=== PATIENT | female | born 1955 | race American Indian/Alaskan Native ===

== ENCOUNTER 2017-10-25 12:04 | Emergency (ER) | payer MEDICAID ==
--- NOTE | 2017-10-25 13:07 | EDM.PDOC ---
ED HPI GENERAL MEDICAL PROBLEM - General Chief Complaint: Cardiovascular Problem Stated Complaint: [id number] HEART RACING Time Seen by Provider: 10/25/17 12:50 Source of Information: Reports: Patient History Limitations: Reports: No Limitations - History of Present Illness INITIAL COMMENTS - FREE TEXT/NARRATIVE: This 61 yo female patient reports to the ED due to heart palpitations (started at 0900) and a sore throat (started at 1500 yesterday). The patient reports she has been taking Tylenol. The patient reports she has had heart palpitations in the past, but they have not lasted this long. The patient reports that she has been experiencing some sternal chest pain and upper back tightness. 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 Chest Pain Score (Numeric/FACES): 1 - Related Data Allergies Allergy/AdvReac Type Severity Reaction Status Date / Time ibuprofen Allergy Cannot Verified 10/25/17 12:43 Remember Home Meds: Home Meds Calcium Carb & Citrate/Vit D3 [Calcium + D3 ER Tablet] 1 tab PO DAILY 06/06/13 [ History] Famotidine [Pepcid] 20 mg PO DAILY 06/06/13 [History] Lisinopril [Prinivil] 10 mg PO DAILY 06/06/13 [History] Multivitamin with Minerals [Joaquin Multivitamin with Mineral] 1 tab PO DAILY 06/06 [History] traMADol [Ultram] 50 mg PO Q6H PRN 06/06/13 [History] Gabapentin [Neurontin] 300 mg PO TID 07/06/15 [History] Aspirin [Adult Low Dose Aspirin EC] 81 mg PO DAILY 09/06/17 [History] cycloSPORINE [Restasis] 1 drop EYEBOTH DAILY 09/06/17 [History] diphenhydrAMINE [Benadryl] 25 mg PO Q6HR PRN 09/06/17 [History] Past Medical History HEENT History: Reports: Impaired Vision Cardiovascular History: Reports: High Cholesterol, Hypertension, Other (See Below) Other Cardiovascular History: rapid heart and palpations Respiratory History: Reports: None Gastrointestinal History: Reports: GERD Genitourinary History: Reports: None 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: Musculoskeletal History: Reports: Back Pain, Chronic, Osteoarthritis, RA Other Musculoskeletal History: Degenerative disc disease Neurological History: Reports: None Psychiatric History: Reports: None Endocrine/Metabolic History: Reports: None Hematologic History: Reports: None Immunologic History: Reports: None Oncologic (Cancer) History: Reports: None Dermatologic History: Reports: None - Infectious Disease History Infectious Disease History: Reports: Chicken Pox, Measles, Mumps - Past Surgical History GI Surgical History: Reports: None Social & Family History - Family History Family Medical History: Noncontributory - Tobacco Use Smoking Status *Q: Unknown Ever Smoked - Caffeine Use Caffeine Use: Reports: Coffee - Recreational Drug Use Recreational Drug Use: No - Living Situation & Occupation Living situation: Reports: , with Family Occupation: Retired ED ROS GENERAL - Review of Systems Review Of Systems: ROS reveals no pertinent complaints other than HPI. ED EXAM, GENERAL - Physical Exam Exam: See Below Exam Limited By: No Limitations General Appearance: Alert, WD/WN, Moderate Distress Eye Exam: Bilateral Eye: EOMI, Normal Inspection, PERRL Ears: Normal External Exam, Normal Canal, Hearing Grossly Normal, Normal TMs Nose: Normal Inspection, Normal Mucosa, No Blood Throat/Mouth: Other (tonsilar erythema, right tonsular exudates, posterior pharynx erythema) Head: Atraumatic, Normocephalic Neck: Lymphadenopathy (R) Respiratory/Chest: No Respiratory Distress, Lungs Clear, Normal Breath Sounds, No Accessory Muscle Use, Chest Non-Tender Cardiovascular: No Edema, No Gallop, No JVD, No Murmur, No Rub, Tachycardia GI/Abdominal: Normal Bowel Sounds, Soft, Non-Tender, No Organomegaly, No Distention, No Abnormal Bruit, No Mass (Female) Exam: Deferred Rectal (Female) Exam: Deferred Back Exam: Normal Inspection, Full Range of Motion, NT Extremities: Normal Inspection, Normal Range of Motion, Non-Tender, Normal Capillary Refill, No Pedal Edema Neurological: Alert, Oriented, CN II-XII Intact, Normal Cognition, Normal Gait, Normal Reflexes, No Motor/Sensory Deficits Psychiatric: Normal Affect, Normal Mood Skin Exam: Warm, Dry, Intact, Normal Color, No Rash Lymphatic: No Adenopathy Course - Vital Signs Last Recorded V/S: Last Vital Signs Temp 37.0 C 08/14/18 12:50 Pulse 153 H 10/25/17 12:50 Resp 13 10/25/17 12:50 BP 124/86 10/25/17 12:50 Pulse Ox 95 10/25/17 12:50 - Orders/Labs/Meds Orders: Active Orders 24 hr Category Date Time Status EKG Documentation Completion [RC] URGENT Care 10/25/17 12:33 Ordered DRUG SCREEN URINE BIORAD [URCHEM] Stat Lab 10/25/17 12:33 Ordered UA W/MICROSCOPIC [URIN] Stat Lab 10/25/17 12:33 Ordered Pen G Bryan/Pen G Procaine [Bicillin C-R 600/600] Med 10/25/17 13:25 Once 1.2 millunits IM ONETIME ONE Medication Orders Penicillin G Procaine/Benzathine (Bicillin C-R 600/600) 1.2 millunits IM ONETIME ONE Stop: 10/25/17 13:26 Labs: Laboratory Tests 10/25/17 10/25/17 10/25/17 Range/Units 12:41 12:41 13:14 WBC 14.5 H (5.0-10.0) 10^3/uL RBC 4.44 (4.2-5.4) 10^6/uL Hgb 13.1 (12.0-16.0) g/dL Hct 40.3 (37.0-47.0) % MCV 90.8 (80-100) fL MCH 29.5 (27.0-34.0) pg MCHC 32.5 L (33.0-35.0) g/dL Plt Count 269 (150-450) 10^3/uL Neut % (Auto) 80.3 H (42.2-75.2) % Lymph % (Auto) 13.9 L (20.5-50.1) % [place] % (Auto) 5.4 (2-8) % Eos % (Auto) 0.2 L (1.0-3.0) % Baso % (Auto) 0.2 (0.0-1.0) % Sodium 136 (135-145) mmol/L Potassium 3.8 (3.6-5.0) mmol/L Chloride 101 (101-111) mmol/L Carbon Dioxide 25.0 (21.0-31.0) mmol/L Anion Gap 13.8 BUN 9 (7-18) mg/dL Creatinine 0.7 (0.6-1.3) mg/dL Est Cr Clr Drug Dosing 79.52 mL/min Estimated GFR (MDRD) > 60 BUN/Creatinine Ratio 12.85 Glucose 119 H (74-105) mg/dL Calcium 9.0 (8.4-10.2) mg/dl Total Bilirubin 1.1 H (0.2-1.0) mg/dL AST 24 (10-42) IU/L ALT 21 (10-60) IU/L Alkaline Phosphatase 125 H (42-121) IU/L Troponin I < 0.02 (0.00-0.02) ng/ml Total Protein 8.4 H (6.7-8.2) g/dl Albumin 4.3 (3.2-5.5) g/dl Globulin 4.1 Albumin/Globulin Ratio 1.05 Urine Color Yellow (YELLOW) Urine Appearance Clear (CLEAR) Urine pH 7.5 (5.0-9.0) Ur Specific [place] 1.015 (1.005-1.030) Urine Protein Negative (NEGATIVE) Urine Glucose (UA) Negative (NEGATIVE) Urine Ketones 15 H (NEGATIVE) Urine Occult Blood Moderate H (NEGATIVE) Urine Nitrite Negative (NEGATIVE) Urine Bilirubin Negative (NEGATIVE) Urine Urobilinogen 0.2 (0.2-1.0) mg/dL Ur Leukocyte Esterase Small H (NEGATIVE) Meds: Medications Generic Name Dose Route Start Last Admin Trade Name Freq PRN Reason Stop Dose Admin Penicillin G Procaine/Benzathine 1.2 millunits 10/25/17 13:25 Bicillin C-R 600/600 IM 10/25/17 13:26 ONETIME ONE Departure - Departure Time of Disposition: 13:26 Disposition: Home, Self-Care 01 Condition: Fair Clinical Impression: Strep throat Instructions: Strep Throat, [id number] Forms: ED Department Discharge Care Plan Goals: The patient was advised of the examination, lab and EKG results during the visit. The patient was given an injection of Bicillin while in the ED. The patient was discharged with a script for Azithromycin (250 mg) #6 to take 2 by mouth on day 1 and 1 by mouth on days 2-5. If the patient has any additional symptoms or concerns, the patient should follow-up with her primary care facility or return to the emergency department. - My Orders Last 24 Hours: My Active Orders 10/25/17 12:33 EKG Documentation Completion [RC] URGENT DRUG SCREEN URINE BIORAD [URCHEM] Stat UA W/MICROSCOPIC [URIN] Stat 10/25/17 13:25 Pen G Bryan/Pen G Procaine [Bicillin C-R 600/600] 1.2 millunits IM ONETIME ONE - Assessment/Plan Last 24 Hours: My Active Orders 10/25/17 12:33 EKG Documentation Completion [RC] URGENT DRUG SCREEN URINE BIORAD [URCHEM] Stat UA W/MICROSCOPIC [URIN] Stat 10/25/17 13:25 Pen G Bryan/Pen G Procaine [Bicillin C-R 600/600] 1.2 millunits IM ONETIME ONE
[2017-10-25 13:08] LABS: ANION GAP 13.8; CHLORIDE,CL 101 mmol/L (101-111); SODIUM,NA 136 mmol/L (135-145)
[2017-10-25] MEDS ORDERED: Penicillin G Benzathine/Procaine 600-600 1.2 Millunits/2 ML Syringe IM ONE (13:25)
[2017-10-25 13:36] VITALS: BP 117/82
--- NOTE | 2017-10-26 12:46 | EKG ---
10/25/2017- PITA REGAN - FINDINGS: A 12-lead EKG shows normal sinus rhythm with sinus tachycardia and first-degree AV block. No significant ST elevation or ST depression noted on this 12-lead EKG. SC interval of 248 as per reading. [facility] /[id number]
== END 2017-10-25 13:46 | disposition home or self-care (01) ==
LOC: DL.ED 12:04
DX: J02.0 Streptococcal pharyngitis (principal); I10 Essential (primary) hypertension; E78.00 Pure hypercholesterolemia, unspecified; K21.9 Gastro-esophageal reflux disease without esophagitis; Z79.82 Long term (current) use of aspirin; Z79.899 Other long term (current) drug therapy; Z88.6 Allergy status to analgesic agent
CPT/HCPCS: 36415; 80053; 80305; 81001; 84484; 85025; 87430; 93005; 96372; 99285; J0558

== ENCOUNTER 2017-11-08 06:35 | Day surgery (SDC) | payer MEDICAID ==
[~2017-11-08 06:35] MED LIST: Midazolam 1 MG/ML 2 ML SDV ONE; Sodium Chloride 0.9% 10 ML Syringe FLUSH PRN; fentaNYL 100 MCG/2 ML SDV ONE
[2017-11-08] MEDS ORDERED: Midazolam 1 MG/ML 2 ML SDV IV ONE (06:36)
[2017-11-08] MEDS ORDERED: fentaNYL 100 MCG/2 ML SDV IV ONE (06:36)
[2017-11-08] MEDS ORDERED: Midazolam 1 MG/ML 2 ML SDV ONE (06:41)
[2017-11-08] MEDS ORDERED: fentaNYL 100 MCG/2 ML SDV ONE (06:41)
[2017-11-08] MEDS: Dextrose 5%-0.45% NaCl 1,000 ML IV SCH (07:00)
[2017-11-08] MEDS: fentaNYL 100 MCG/2 ML SDV IV ONE ×2 (07:23→07:24)
[2017-11-08] MEDS: Midazolam 1 MG/ML 2 ML SDV IV ONE ×2 (07:25→07:26)
[2017-11-08 09:22] VITALS: BP 107/65
--- NOTE | 2017-11-08 13:56 | OR ---
DATE: 11/08/2017 PROCEDURE: Esophagogastroduodenoscopy and multiple pinch biopsies. INSTRUMENT USED: GIF-H180 Olympus video panendoscope. PREMEDICATIONS: No oral topical anesthesia used. Fentanyl 100 mcg intravenous, Versed 2 mg intravenous, nasal O2 cannula. The procedure was done under pulse oximetry, BP recording, and shelter monitor. INDICATIONS: The patient with longstanding heartburn, dyspepsia as well as abdominal pain, unexplained and not responsive to medical measures, on acid suppressants. Esophagogastroduodenoscopy is performed for detection of any active erosive lesions, Orozco esophagus and/or malignancy also under consideration, H. pylori status to be determined, endoscopic hemostasis therapy if needed. DESCRIPTION OF PROCEDURE: The scope was passed with ease. Adequate visualization of the esophagus was made from proximal to distal areas. No upper esophageal lesions identified. No distal esophageal stricture. No uphill or downhill esophageal varices. No Vy-Mahmood tear. No evidence of erosive esophagitis by [place] criteria. No esophageal polyp or tumor mass identified. Z-line was seen at around 39 cm distal to the oral verge, configuration consistent with grade 1 by ZAP classification. No proximal gastric varices noted. Gastric fundus examination by retroflexion showed no polypoid lesions. No gastric ulcer, malignant mass, or vascular ectasia identified. Scattered gastric antral erosions were noted without lesions. Duodenal bulb showed no ulcer. Visualized second part of the duodenum was unremarkable. Multiple pinch biopsies were taken from the gastric antrum and proximal body and sent for PyloriTek test for H. pylori, and if negative in an hour, the tissue is to be sent for histopathology. No bleeding was noted from any of the visualized areas at the completion of examination. Photographs were taken of duodenal bulb, gastric antrum, fundus, and distal esophagus. IMPRESSION: Gastric antral erosions. The patient tolerated the procedure well. [facility] /[id number]
== END 2017-11-08 09:22 | disposition home or self-care (01) ==
LOC: DL.ENDO 06:35
PROVIDERS: ATTEND Internal Medicine Gastroenterology
DX: K29.50 Unspecified chronic gastritis without bleeding (principal); K25.9 Gastric ulcer, unspecified as acute or chronic, without hemorrhage or perforation; D64.9 Anemia, unspecified; I10 Essential (primary) hypertension; E66.09 Other obesity due to excess calories; M19.90 Unspecified osteoarthritis, unspecified site; G47.30 Sleep apnea, unspecified; Z79.82 Long term (current) use of aspirin; Z79.899 Other long term (current) drug therapy
CPT/HCPCS: 43239; 87077; J2250; J3010; J7042

== ENCOUNTER 2018-12-05 20:42 | Emergency (ER) | payer MEDICAID ==
[2018-12-05 21:02] VITALS: PULSE 74
[2018-12-05] MEDS ORDERED: Nitroglycerin 0.4 MG Tab.SL SL ONE (21:43)
[2018-12-05] MEDS ORDERED: Ondansetron 4 MG/2 ML SDV IV ONE (21:43)
[2018-12-05 21:49] LABS: ANION GAP 10.7; CHLORIDE,CL 105 mmol/L (101-111); SODIUM,NA 139 mmol/L (135-145)
[2018-12-05 22:06] VITALS: BP 133/72
--- NOTE | 2018-12-06 00:05 | EDM.PDOC ---
ED HPI GENERAL MEDICAL PROBLEM - General Chief Complaint: Cardiovascular Problem Stated Complaint: LOW HEART RATE, DIFFICULTY BREATHING Time Seen by Provider: 12/05/18 21:10 Source of Information: Reports: Patient History Limitations: Reports: No Limitations - History of Present Illness INITIAL COMMENTS - FREE TEXT/NARRATIVE: ED with c/o low heart rate, first noticing around noon today, felt more tired, some SOB, No "chest pain" some discomfort under left lateral breast and left shoulder. Hx of internal loop recorder following 2 abalation procedures for / tachy, rustam rhythms. Notes hx of a- fib but not on any anticoag except baby aspirin. mild nausea, no vomiting. No fever oor chills. Middle Back Pain Score (Numeric/FACES): 2 - Related Data Allergies Allergy/AdvReac Type Severity Reaction Status Date / Time ibuprofen AdvReac Other Verified 12/05/18 20:58 Home Meds: Home Meds Calcium Carb & Citrate/Vit D3 [Calcium + D3 ER Tablet] 1 tab PO DAILY 06/06/13 [ History] Multivitamin with Minerals [Joaquin Multivitamin with Mineral] 1 tab PO DAILY 06/06 [History] traMADol [Ultram] 50 mg PO Q6H PRN 06/06/13 [History] Aspirin [Adult Low Dose Aspirin EC] 81 mg PO DAILY 09/06/17 [History] cycloSPORINE [Restasis] 1 drop EYEBOTH DAILY 09/06/17 [History] Acetaminophen 1,000 mg PO TID 11/04/17 [History] Folic Acid 1 mg PO DAILY 12/05/18 [History] Metoprolol Tartrate [Lopressor] 25 mg PO BID 12/05/18 [History] Omeprazole 20 mg PO DAILY 12/05/18 [History] Past Medical History HEENT History: Reports: Impaired Vision Cardiovascular History: Reports: Arrhythmia, High Cholesterol, Hypertension, Other (See Below) Other Cardiovascular History: rapid heart and palpations Respiratory History: Reports: Sleep Apnea Gastrointestinal History: Reports: GERD, Other (See Below) Other Gastrointestinal History: S/P GASTRIC EROSIONS Genitourinary History: Reports: 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 HX OF COSTOCHONDRITIS. FRACTURE OF R FEMUR Neurological History: Reports: None, Other (See Below) Other Neuro History: HX OF ASCENCIO'S PALSY Psychiatric History: Reports: None Endocrine/Metabolic History: Reports: Obesity/BMI 30+ Hematologic History: Reports: Anemia Immunologic History: Reports: None Oncologic (Cancer) History: Reports: None Dermatologic History: Reports: None - Infectious Disease History Infectious Disease History: Reports: Chicken Pox, Measles, Mumps - Past Surgical History Head Surgeries/Procedures: Reports: None HEENT Surgical History: Reports: None Cardiovascular Surgical History: Reports: Percutaneous Transluminal Angioplasty , Other (See Below) Other Cardiovascular Surgeries/Procedures: Oblation GI Surgical History: Reports: Colonoscopy, EGD Female Surgical History: Reports: Tubal Ligation Neurological Surgical History: Reports: None Social & Family History - Family History Family Medical History: Noncontributory - Tobacco Use Smoking Status *Q: Unknown Ever Smoked Second Hand Smoke Exposure: No - Caffeine Use Caffeine Use: Reports: Coffee Other Caffeine Use: 12 oz - Recreational Drug Use Recreational Drug Use: No - Living Situation & Occupation Living situation: Reports: , with Family Occupation: Retired ED ROS GENERAL - Review of Systems Review Of Systems: See Below Constitutional: Reports: Malaise, Fatigue. Denies: Fever, Chills, Weakness, Diaphoresis, Decreased Appetite HEENT: Reports: No Symptoms Respiratory: Denies: Wheezing, Pleuritic Chest Pain, Cough, Sputum Cardiovascular: Reports: Palpitations. Denies: Chest Pain, Dyspnea on Exertion , Edema GI/Abdominal: Reports: Nausea Musculoskeletal: Reports: No Symptoms Skin: Reports: No Symptoms Neurological: Reports: No Symptoms ED EXAM, GENERAL - Physical Exam Exam: See Below Exam Limited By: No Limitations General Appearance: Alert, No Apparent Distress, Anxious Eye Exam: Bilateral Eye: EOMI Ears: Normal External Exam, Normal TMs Nose: Normal Inspection, Nasal Tenderness Throat/Mouth: Normal Inspection Head: Atraumatic, Normocephalic Neck: Normal Inspection, Full Range of Motion Respiratory/Chest: No Respiratory Distress, Lungs Clear, Normal Breath Sounds Cardiovascular: Regular Rate, Rhythm. No: No Rub, JVD, Extra Beats, Irregularly Irregular GI/Abdominal: Normal Bowel Sounds, Soft Back Exam: Full Range of Motion Extremities: Normal Inspection Neurological: Alert, Oriented, Normal Cognition Psychiatric: Anxious, Flat Affect Skin Exam: Warm, Dry, Intact, Normal Color EKG INTERPRETATION Rhythm: Other (sinus rustam) Course - Vital Signs Last Recorded V/S: Last Vital Signs Temp 98.0 F 12/05/18 21:01 Pulse 74 12/05/18 21:01 Resp 16 12/05/18 21:01 BP 133/72 12/05/18 22:06 Pulse Ox 96 12/05/18 21:01 - Orders/Labs/Meds Orders: Active Orders 24 hr Category Date Time Status EKG Documentation Completion [RC] URGENT Care 12/05/18 21:02 Active Labs: Laboratory Tests 12/05/18 12/05/18 12/05/18 Range/Units 21:21 21:21 21:21 WBC 7.7 (5.0-10.0) 10^3/uL RBC 4.13 L (4.2-5.4) 10^6/uL Hgb 12.3 (12.0-16.0) g/dL Hct 37.9 (37.0-47.0) % MCV 91.8 (80-100) fL MCH 29.8 (27.0-34.0) pg MCHC 32.5 L (33.0-35.0) g/dL Plt Count 246 (150-450) 10^3/uL Neut % (Auto) 49.6 (42.2-75.2) % Lymph % (Auto) 39.8 (20.5-50.1) % [place] % (Auto) 7.0 (2-8) % Eos % (Auto) 3.1 H (1.0-3.0) % Baso % (Auto) 0.5 (0.0-1.0) % D-Dimer, Quantitative 460 H (0-400) ng/mL Sodium 139 (135-145) mmol/L Potassium 3.7 (3.6-5.0) mmol/L Chloride 105 (101-111) mmol/L Carbon Dioxide 27.0 (21.0-31.0) mmol/L Anion Gap 10.7 BUN 14 (7-18) mg/dL Creatinine 0.8 (0.6-1.3) mg/dL Est Cr Clr Drug Dosing 66.51 mL/min Estimated GFR (MDRD) > 60 BUN/Creatinine Ratio 17.50 Glucose 113 H (74-105) mg/dL Calcium 8.7 (8.4-10.2) mg/dl Magnesium 2.1 (1.8-2.5) mg/dL Total Bilirubin 0.7 (0.2-1.0) mg/dL AST 30 (10-42) IU/L ALT 33 (10-60) IU/L Alkaline Phosphatase 92 (42-121) IU/L Troponin I < 0.02 (0.00-0.02) ng/ml B-Natriuretic Peptide 93 (0-100) pg/ml Total Protein 7.4 (6.7-8.2) g/dl Albumin 3.7 (3.2-5.5) g/dl Globulin 3.7 Albumin/Globulin Ratio 1.00 Meds: Medications Discontinued Medications Generic Name Dose Route Start Last Admin Trade Name Freq PRN Reason Stop Dose Admin Nitroglycerin 0.4 mg 12/05/18 21:43 12/05/18 22:06 Nitrostat SL 12/05/18 21:44 Not Given ONETIME ONE Ondansetron HCl 4 mg 12/05/18 21:43 12/05/18 22:05 Zofran IV 12/05/18 21:44 4 mg ONETIME ONE Administration - Radiology Interpretation Free Text/Narrative:: [facility] Final Radiology Report Call: [phone] assistance Online chat: [email or web address] Name: PITA REGAN Age: 63Years F Date: 12/05/2018 SSN: -- : 1955 Study: XR CHEST 1 VIEW FRONTAL Requesting Physician: MELODY MCDERMOTT Images: 1 Addl Studies: Provided Clinical History: Contrast: Contrast Medium: Contrast Amount: Contrast Method: CONFIDENTIALITY STATEMENT This report is intended only for use by the referring physician, and only in accordance with law. If you received this in error, call [phone]. Page 1 of 1 PROCEDURE INFORMATION: Exam: XR Chest, 1 View Exam date and time: 12/05/2018 9:17 PM Clinical history: 63 years old, female; Other: Bradycardia TECHNIQUE: Imaging protocol: XR of the chest Views: 1 view. COMPARISON: CR CHEST PA/LAT 12/21/2007 11:44 AM FINDINGS: Tubes, catheters and devices: There is an implantable loop recorder in the left side of the chest. Lungs: Unremarkable. No consolidation. Pleural space: Unremarkable. No pleural effusion. No pneumothorax. Heart/Mediastinum: The heart is top-normal in size. Bones/joints: Unremarkable. IMPRESSION: No sign of acute cardiopulmonary abnormality or abnormal interval change. Thank you for allowing us to participate in the care of your patient. Dictated and Authenticated by: Vargas Francisco DO 12/05/2018 10:06 PM Central Time ([place] & [place]) - Re-Assessments/Exams Free Text/Narrative Re-Assessment/Exam: 12/06/18 00:06 Dr Sneed accepting patient in transfer. Tx via [facility] 12/06/18 03:58 Departure - Departure Time of Disposition: 00:10 Disposition: DC/Tfer to Acute Hospital 02 Reason for Transfer *Q: Other Condition: Good Clinical Impression: Palpitations, Sinus bradycardia Forms: ED Department Discharge - My Orders Last 24 Hours: My Active Orders 12/05/18 21:02 EKG Documentation Completion [RC] URGENT - Assessment/Plan Last 24 Hours: My Active Orders 12/05/18 21:02 EKG Documentation Completion [RC] URGENT
== END 2018-12-06 00:15 ==
LOC: DL.ED 20:42
DX: R00.1 Bradycardia, unspecified (principal); R00.2 Palpitations; I10 Essential (primary) hypertension; K21.9 Gastro-esophageal reflux disease without esophagitis; E66.9 Obesity, unspecified; Z98.51 Tubal ligation status; Z79.82 Long term (current) use of aspirin; Z79.899 Other long term (current) drug therapy; Z88.6 Allergy status to analgesic agent; Z86.79 Personal history of other diseases of the circulatory system
CPT/HCPCS: 36415; 71045; 80053; 83735; 83880; 84484; 85025; 85379; 93005; 96374; 99285; J2405

== ENCOUNTER 2020-02-04 11:43 | Emergency (ER) | payer MEDICARE, MEDICAID ==
[2020-02-04 11:59] VITALS: BP 133/69; PULSE 70
--- NOTE | 2020-02-04 12:25 | CR ---
EXAMINATION: Chest 2V SEX: Female AGE: 64 years CLINICAL HISTORY: 64-year-old female short of breath (SOB). INTERPRETATION: No acute new cardiopulmonary abnormality since 05 December 2018 comparison. 1. New cardiac pacemaker over the anterior upper left hemithorax (2 leads intact). Oxygen cannula. 2. No pneumothorax or pneumomediastinum. Midline tracheal bronchial airway unremarkable. 3. No new lung mass, hilar lymphadenopathy or focal lobar consolidation (infiltrate/atelectasis). 4. No peripheral "groundglass" lung densities. 5. Early degenerative changes mid and lower thoracic spine. Thoracic aorta unremarkable. 6. Normal cardiac silhouette (size/configuration). No vascular congestion, alveolar edema, pleural effusion.
[2020-02-04 12:32] LABS: ANION GAP 14.1 mEq/L (7-13); CHLORIDE,CL 101 mmol/L (98-107); SODIUM,NA 136 mmol/L (136-145)
[2020-02-04] MEDS ORDERED: Sodium Chloride 0.9% 1,000 ML IV ONE (12:51)
--- NOTE | 2020-02-04 12:58 | EDM.PDOC ---
ED HPI GENERAL MEDICAL PROBLEM - General Chief Complaint: Respiratory Problem Stated Complaint: AMBULANCE Time Seen by Provider: 02/04/20 12:45 Source of Information: Reports: Patient History Limitations: Reports: No Limitations - History of Present Illness INITIAL COMMENTS - FREE TEXT/NARRATIVE: This 64 yo female patient reports to the ED due to increased shortness of breath, lightheadedness and a cough. The patient reports she was diagnosed with COVID on 01/24/20 and has been on 2 different courses of antibiotics along with steroids. The patient reports she has been seen at the [facility] with her last visit being last Tuesday (02/01/20). The patient was initially on Rocephin and Azithromycin, but now is on Levaquin along with steroids. The patient did not call or return to the [facility] today with her continued symptoms. Onset Date: 01/24/20 Duration: Constant Location: Reports: Chest Quality: Reports: Other Severity: Moderate Improves with: Reports: None Worsens with: Reports: None Context: Reports: Other Associated Symptoms: Reports: Cough, Fever/Chills, Shortness of Breath, Weakness (generalized) Generalized Pain Score (Numeric/FACES): 4 - Related Data Allergies Allergy/AdvReac Type Severity Reaction Status Date / Time ibuprofen AdvReac Other Verified 02/04/20 11:59 Home Meds: Home Meds Calcium Carb, Citrate/Vit D3 [Calcium + D3 ER Tablet] 1 tab PO DAILY 06/06/13 [History] Multivitamin with Minerals [Joaquin Multivitamin with Mineral] 1 tab PO DAILY 06/06/13 [History] traMADol [Ultram] 50 mg PO Q6H PRN 06/06/13 [History] Aspirin [Adult Low Dose Aspirin EC] 81 mg PO DAILY 09/06/17 [History] cycloSPORINE [Restasis] 1 drop EYEBOTH DAILY 09/06/17 [History] Acetaminophen 1,000 mg PO TID 11/04/17 [History] Folic Acid 1 mg PO DAILY 12/05/18 [History] Metoprolol Tartrate [Lopressor] 25 mg PO BID 12/05/18 [History] Omeprazole 20 mg PO DAILY 12/05/18 [History] Past Medical History HEENT History: Reports: Impaired Vision Cardiovascular History: Reports: Arrhythmia, High Cholesterol, Hypertension, Pacemaker, Other (See Below) Other Cardiovascular History: rapid heart and palpations Respiratory History: Reports: Sleep Apnea Gastrointestinal History: Reports: GERD, Other (See Below) Other Gastrointestinal History: S/P GASTRIC EROSIONS Genitourinary History: Reports: None 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 HX OF COSTOCHONDRITIS. FRACTURE OF R FEMUR Neurological History: Reports: None, Other (See Below) Other Neuro History: HX OF ASCENCIO'S PALSY Psychiatric History: Reports: None Endocrine/Metabolic History: Reports: Obesity/BMI 30+ Hematologic History: Reports: Anemia Immunologic History: Reports: None Oncologic (Cancer) History: Reports: None Dermatologic History: Reports: None - Infectious Disease History Infectious Disease History: Reports: Chicken Pox, Measles, Mumps - Past Surgical History Head Surgeries/Procedures: Reports: None HEENT Surgical History: Reports: None Cardiovascular Surgical History: Reports: Percutaneous Transluminal Angioplasty, Other (See Below) Other Cardiovascular Surgeries/Procedures: Oblation GI Surgical History: Reports: Colonoscopy, EGD Female Surgical History: Reports: Tubal Ligation Neurological Surgical History: Reports: None Social & Family History - Family History Family Medical History: No Pertinent Family History - Tobacco Use Tobacco Use Status *Q: Never Tobacco User Second Hand Smoke Exposure: No - Caffeine Use Caffeine Use: Reports: None Other Caffeine Use: 12 oz - Recreational Drug Use Recreational Drug Use: No - Living Situation & Occupation Living situation: Reports: , with Family Occupation: Retired ED ROS GENERAL - Review of Systems Review Of Systems: Comprehensive ROS is negative, except as noted in HPI. ED EXAM, GENERAL - Physical Exam Exam: See Below Exam Limited By: No Limitations General Appearance: Alert, WD/WN, Moderate Distress, Obese Eye Exam: Bilateral Eye: EOMI, Normal Inspection, PERRL Ears: Normal External Exam, Normal Canal, Hearing Grossly Normal, Normal TMs Nose: Normal Inspection, Normal Mucosa, No Blood Throat/Mouth: Normal Inspection, Normal Lips, Normal Teeth, Normal Gums, Normal Oropharynx, Normal Voice, No Airway Compromise Head: Atraumatic, Normocephalic Neck: Normal Inspection, Supple, Non-Tender, Full Range of Motion Respiratory/Chest: Decreased Breath Sounds (diffuse) Cardiovascular: Normal Peripheral Pulses, Regular Rate, Rhythm, No Edema, No Gallop, No JVD, No Murmur, No Rub GI/Abdominal: Normal Bowel Sounds, Soft, Non-Tender, No Organomegaly, No Distention, No Abnormal Bruit, No Mass (Female) Exam: Deferred Rectal (Female) Exam: Deferred Back Exam: Normal Inspection, Full Range of Motion, NT Extremities: Normal Inspection, Normal Range of Motion, Non-Tender, Normal Capillary Refill, No Pedal Edema Neurological: Alert, Oriented, CN II-XII Intact, Normal Cognition, Normal Gait, Normal Reflexes, No Motor/Sensory Deficits Psychiatric: Normal Affect, Normal Mood Skin Exam: Warm, Dry, Intact, Normal Color, No Rash Lymphatic: No Adenopathy Course - Vital Signs Last Recorded V/S: Last Vital Signs Temp 36.4 C 02/04/20 11:55 Pulse 70 02/04/20 11:55 Resp 20 02/04/20 11:55 BP 133/69 02/04/20 11:55 Pulse Ox 93 L 02/04/20 11:55 - Orders/Labs/Meds Orders: Active Orders 24 hr Category Date Time Status EKG Documentation Completion [RC] STAT Care 02/04/20 11:51 Active CULTURE BLOOD [BC] Stat Lab 02/04/20 12:04 Received Sodium Chloride 0.9% [Normal Saline] 1,000 ml Med 02/04/20 12:51 Active IV .BOLUS Medication Orders Sodium Chloride (Normal Saline) 1,000 mls @ 999 mls/hr IV .BOLUS ONE Stop: 02/04/20 13:51 Last Infusion: 02/04/20 13:39 Dose: 125 mls/hr Documented by: Admin: 02/04/20 12:59 Dose: 999 mls/hr Documented by: MADISON Labs: Laboratory Tests 02/04/20 02/04/20 02/04/20 Range/Units 12:04 12:04 12:04 WBC 10.2 H (5.0-10.0) 10^3/uL RBC 4.46 (4.2-5.4) 10^6/uL Hgb 13.3 (12.0-16.0) g/dL Hct 39.1 (37.0-47.0) % MCV 87.7 D (80-100) fL MCH 29.8 (27.0-34.0) pg MCHC 34.0 (33.0-35.0) g/dL Plt Count 327 D (150-450) 10^3/uL Neut % (Auto) 91.1 H (42.2-75.2) % Lymph % (Auto) 5.8 L (20.5-50.1) % [place] % (Auto) 3.1 (2-8) % Eos % (Auto) 0.0 L (1.0-3.0) % Baso % (Auto) 0.0 (0.0-1.0) % Add Manual Diff Yes Neutrophils % (Manual) 93 H (42-75) % Band Neutrophils % 1 % Lymphocytes % (Manual) 5 L (20-50) % Monocytes % (Manual) 1 L (2-8) % Sodium 136 (136-145) mmol/L Potassium 4.1 (3.5-5.1) mmol/L Chloride 101 (98-107) mmol/L Carbon Dioxide 25 (21-32) mmol/L Anion Gap 14.1 H (7-13) mEq/L BUN 10 (7-18) mg/dL Creatinine 0.78 (0.55-1.02) mg/dL Est Cr Clr Drug Dosing 69.92 mL/min Estimated GFR (MDRD) > 60 BUN/Creatinine Ratio 12.8 (No establ ref range) Glucose 137 H (74-99) mg/dL Lactic Acid 1.4 (0.4-2.0) mmol/L Calcium 8.7 (8.5-10.1) mg/dL Total Bilirubin 0.6 (0.2-1.0) mg/dL AST 43 H (15-37) U/L ALT 52 (14-59) U/L Alkaline Phosphatase 99 (46-116) U/L Troponin I < 0.017 (0.000-0.056) ng/mL Total Protein 7.7 (6.4-8.2) g/dL Albumin 2.8 L (3.4-5.0) g/dL Globulin 4.9 Albumin/Globulin Ratio 0.57 Meds: Medications Generic Name Dose Route Start Last Admin Trade Name Freq PRN Reason Stop Dose Admin Sodium Chloride 1,000 mls @ 999 mls/hr 02/04/20 12:51 02/04/20 13:39 Normal Saline IV 02/04/20 13:51 125 mls/hr .BOLUS ONE Infusion Departure - Departure Time of Disposition: 13:49 Disposition: Home, Self-Care 01 Condition: Fair Clinical Impression: Short of breath on exertion - Discharge Information *PRESCRIPTION DRUG MONITORING PROGRAM REVIEWED*: Not Applicable *COPY OF PRESCRIPTION DRUG MONITORING REPORT IN PATIENT KIN: Not Applicable Forms: ED Department Discharge Care Plan Goals: The patient was advised of the examination, lab and x-ray results during the visit. The patient was encouraged to continue to take the medications as prescribed by her primary care facility. The patient was discharged with a script for Johnsin AC #150 to take 10 mL by mouth every 6 hours as needed. If the patient has any additional symptoms or concerns, the patient should either return to the emergency department or visit her primary care facility. Sepsis Event Note (ED) - Evaluation Sepsis Screening Result: No Definite Risk - Focused Exam Vital Signs: Vital Signs Temp Pulse Resp BP Pulse Ox 02/04/20 11:55 36.4 C 70 20 133/69 93 L - My Orders Last 24 Hours: My Active Orders 02/04/20 11:51 EKG Documentation Completion [RC] STAT 02/04/20 12:04 CULTURE BLOOD [BC] Stat 02/04/20 12:51 Sodium Chloride 0.9% [Normal Saline] 1,000 ml IV .BOLUS - Assessment/Plan Last 24 Hours: My Active Orders 02/04/20 11:51 EKG Documentation Completion [RC] STAT 02/04/20 12:04 CULTURE BLOOD [BC] Stat 02/04/20 12:51 Sodium Chloride 0.9% [Normal Saline] 1,000 ml IV .BOLUS
== END 2020-02-04 14:08 | disposition home or self-care (01) ==
LOC: DL.ED 11:43
DX: R06.02 Shortness of breath (principal); I10 Essential (primary) hypertension; K21.9 Gastro-esophageal reflux disease without esophagitis; M19.90 Unspecified osteoarthritis, unspecified site; E66.9 Obesity, unspecified; Z68.34 Body mass index [BMI] 34.0-34.9, adult; Z88.6 Allergy status to analgesic agent; Z79.82 Long term (current) use of aspirin; Z79.899 Other long term (current) drug therapy
CPT/HCPCS: 36415; 71046; 80053; 83605; 84484; 85025; 87040; 93005; 99285; J7030

== ENCOUNTER 2020-02-06 17:51 | Inpatient (IN) | payer MEDICARE, MEDICAID ==
--- NOTE | 2020-02-06 18:19 | EDM.PDOC ---
<Roberto Sinha Cheng - Last Filed: 02/06/20 19:30> ED HPI GENERAL MEDICAL PROBLEM - General Chief Complaint: Respiratory Problem Time Seen by Provider: 02/06/20 18:10 Source of Information: Reports: Patient History Limitations: Reports: No Limitations - History of Present Illness INITIAL COMMENTS - FREE TEXT/NARRATIVE: This 64 yo female patient was brought to the emergency department by [facility] due to continued shortness of breath. The patient did test positive for COVID on 01/24/20, but has continued to feel ill since that time. The patient was initially placed on Dexamethasone and Azithromycin, and changed to Dexamethasone and Levaquin. The patient reports she has continued to feel short of breath with only walking 10-15 feet. The patient reports her oxygen saturation falls to 88% without oxygen. The patient reports she did have a fever of 101 this morning took Tylenol to reduce her fever. The patient reports prior to COVID she could have easily walked 1 mile (the patient is a [employer]). 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: Acetaminophen - Related Data Allergies Allergy/AdvReac Type Severity Reaction Status Date / Time ibuprofen AdvReac Other Verified 02/06/20 21:14 Home Meds: Home Meds Calcium Carb, Citrate/Vit D3 [Calcium + D3 ER Tablet] 1 tab PO DAILY 06/06/13 [History] Multivitamin with Minerals [Joaquin Multivitamin with Mineral] 1 tab PO DAILY 06/06/13 [History] traMADol [Ultram] 50 mg PO Q6H PRN 06/06/13 [History] Aspirin [Adult Low Dose Aspirin EC] 81 mg PO DAILY 09/06/17 [History] cycloSPORINE [Restasis] 1 drop EYEBOTH DAILY 09/06/17 [History] Acetaminophen 1,000 mg PO TID 11/04/17 [History] Folic Acid 1 mg PO DAILY 12/05/18 [History] Omeprazole 20 mg PO DAILY 12/05/18 [History] Codeine/guaiFENesin [Robitussin AC] 5 ml PO ASDIRECTED PRN 02/06/20 [History] dexAMETHasone [Dexamethasone] 4 mg PO DAILY 02/06/20 [History] levoFLOXacin [Levaquin] 500 mg PO DAILY 02/06/20 [History] lisinopriL [Lisinopril] 5 mg PO DAILY 02/06/20 [History] Past Medical History HEENT History: Reports: Impaired Vision Cardiovascular History: Reports: Arrhythmia, High Cholesterol, Hypertension, Pacemaker, Other (See Below) Other Cardiovascular History: rapid heart and palpations Respiratory History: Reports: Sleep Apnea Gastrointestinal History: Reports: GERD, Other (See Below) Other Gastrointestinal History: S/P GASTRIC EROSIONS Genitourinary History: Reports: None 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 HX OF COSTOCHONDRITIS. FRACTURE OF R FEMUR Neurological History: Reports: None, Other (See Below) Other Neuro History: HX OF ASCENCIO'S PALSY Psychiatric History: Reports: None Endocrine/Metabolic History: Reports: Obesity/BMI 30+ Hematologic History: Reports: Anemia Immunologic History: Reports: None Oncologic (Cancer) History: Reports: None Dermatologic History: Reports: None - Infectious Disease History Infectious Disease History: Reports: Chicken Pox, Measles, Mumps - Past Surgical History Head Surgeries/Procedures: Reports: None HEENT Surgical History: Reports: None Cardiovascular Surgical History: Reports: Percutaneous Transluminal Angioplasty, Other (See Below) Other Cardiovascular Surgeries/Procedures: Oblation GI Surgical History: Reports: Colonoscopy, EGD Female Surgical History: Reports: Tubal Ligation Neurological Surgical History: Reports: None Social & Family History - Family History Family Medical History: No Pertinent Family History - Caffeine Use Caffeine Use: Reports: None Other Caffeine Use: 12 oz - Living Situation & Occupation Living situation: Reports: , with Family Occupation: Retired ED ROS GENERAL - Review of Systems Review Of Systems: Comprehensive ROS is negative, except as noted in HPI. ED EXAM, GENERAL - Physical Exam Exam: See Below Exam Limited By: No Limitations General Appearance: Alert, WD/WN, Moderate Distress Eye Exam: Bilateral Eye: EOMI, Normal Inspection, PERRL Ears: Normal External Exam, Normal Canal, Hearing Grossly Normal, Normal TMs Nose: Normal Inspection, Normal Mucosa, No Blood Throat/Mouth: Normal Inspection, Normal Lips, Normal Teeth, Normal Gums, Normal Oropharynx, Normal Voice, No Airway Compromise Head: Atraumatic, Normocephalic Neck: Normal Inspection, Supple, Non-Tender, Full Range of Motion Respiratory/Chest: Decreased Breath Sounds Cardiovascular: Normal Peripheral Pulses, Regular Rate, Rhythm, No Edema, No Gallop, No JVD, No Murmur, No Rub GI/Abdominal: Normal Bowel Sounds, Soft, Non-Tender, No Organomegaly, No Distention, No Abnormal Bruit, No Mass (Female) Exam: Deferred Rectal (Female) Exam: Deferred Back Exam: Normal Inspection, Full Range of Motion, NT Extremities: Normal Inspection, Normal Range of Motion, Non-Tender, Normal Capillary Refill, No Pedal Edema Neurological: Alert, Oriented, CN II-XII Intact, Normal Cognition, Normal Gait, Normal Reflexes, No Motor/Sensory Deficits Psychiatric: Normal Affect, Normal Mood Skin Exam: Warm, Dry, Intact, Normal Color, No Rash Lymphatic: No Adenopathy Departure - Departure Disposition: Admitted As Inpatient 65 Clinical Impression: Pneumonia due to 2019-nCoV - Discharge Information Sepsis Event Note (ED) - Evaluation Sepsis Screening Result: Possible Sepsis Risk <Viv Baldwin - Last Filed: 02/07/20 00:18> Course - Vital Signs Last Recorded V/S: Last Vital Signs Temp 98.2 F 02/06/20 23:56 Pulse 86 02/06/20 23:56 Resp 16 02/06/20 23:56 BP 122/65 02/06/20 23:56 Pulse Ox 81 L 02/06/20 23:56 - Orders/Labs/Meds Orders: Medication Orders Acetaminophen (Tylenol) 650 mg PO Q4H PRN PRN Reason: Pain (Mild 1-3)/fever Albuterol (Proventil Hfa) 6.7 gm INH QIDRT [facility] Apixaban (Eliquis) 5 mg PO BID [facility] Last Admin: 02/06/20 21:59 Dose: 5 mg Documented by: ERICROX Aspirin (Halfprin) 81 mg PO DAILY [facility] Dexamethasone (Decadron) 6 mg IVPUSH DAILY [facility] Stop: 02/16/20 09:01 Docusate Sodium (Colace) 100 mg PO BID PRN PRN Reason: Constipation Last Admin: 02/06/20 21:59 Dose: 100 mg Documented by: ERICROX Folic Acid (Folic Acid) 1 mg PO DAILY [facility] Guaifenesin/Codeine Phosphate (Robitussin Ac) 5 ml PO ASDIRECTED PRN PRN Reason: Cough Last Admin: 02/06/20 21:59 Dose: 5 ml Documented by: ERICROX Sodium Chloride (Normal Saline) 1,000 mls @ 75 mls/hr IV ASDIRECTED [facility] Last Admin: 02/06/20 21:05 Dose: 75 mls/hr Documented by: ERICROX Azithromycin 500 mg/ Sodium (Chloride) 250 mls @ 250 mls/hr IV Q24H [facility] Last Admin: 02/06/20 22:00 Dose: 250 mls/hr Documented by: ERICROX Ceftriaxone Sodium 1 gm/ (Sodium Chloride) 50 mls @ 100 mls/hr IV Q24H [facility] Last Admin: 02/06/20 22:00 Dose: 100 mls/hr Documented by: ERICROX Lisinopril (Prinivil) 5 mg PO DAILY [facility] Mometasone Furoate/Formoterol Fumar (Dulera 200-5 Mcg) 2 puff IH BIDRT [facility] Last Admin: 02/06/20 22:31 Dose: 2 puff Documented by: ERICROX Multivitamins/Minerals (Vitamins And Minerals) 1 tab PO DAILY [facility] Non-Formulary Medication (Cyclosporine [Restasis]) 1 drop EYEBOTH DAILY [facility] Omeprazole (Omeprazole) 20 mg PO DAILY [facility] Ondansetron HCl (Zofran Odt) 4 mg PO Q4H PRN PRN Reason: nausea, able to take PO Tramadol HCl (Ultram) 50 mg PO Q6H PRN PRN Reason: Pain Labs: Laboratory Tests 02/06/20 02/06/20 02/06/20 Range/Units 18:22 18:22 18:22 WBC 8.0 (5.0-10.0) 10^3/uL RBC 4.37 (4.2-5.4) 10^6/uL Hgb 13.2 (12.0-16.0) g/dL Hct 38.3 (37.0-47.0) % MCV 87.6 (80-100) fL MCH 30.2 (27.0-34.0) pg MCHC 34.5 (33.0-35.0) g/dL Plt Count 298 (150-450) 10^3/uL Neut % (Auto) 87.3 H (42.2-75.2) % Lymph % (Auto) 8.3 L (20.5-50.1) % [place] % (Auto) 4.3 (2-8) % Eos % (Auto) 0.1 L (1.0-3.0) % Baso % (Auto) 0.0 (0.0-1.0) % D-Dimer, Quantitative > 5000 H (0-400) ng/mL Sodium 135 L (136-145) mmol/L Potassium 3.9 (3.5-5.1) mmol/L Chloride 101 (98-107) mmol/L Carbon Dioxide 24 (21-32) mmol/L Anion Gap 13.9 H (7-13) mEq/L BUN 15 (7-18) mg/dL Creatinine 0.76 (0.55-1.02) mg/dL Est Cr Clr Drug Dosing 71.76 mL/min Estimated GFR (MDRD) > 60 BUN/Creatinine Ratio 19.7 (No establ ref range) Glucose 112 H (74-99) mg/dL Calcium 8.6 (8.5-10.1) mg/dL Total Bilirubin 0.5 (0.2-1.0) mg/dL AST 37 (15-37) U/L ALT 46 (14-59) U/L Alkaline Phosphatase 95 (46-116) U/L Total Protein 7.3 (6.4-8.2) g/dL Albumin 2.5 L (3.4-5.0) g/dL Globulin 4.8 Albumin/Globulin Ratio 0.52 Meds: Medications Generic Name Dose Route Start Last Admin Trade Name Freq PRN Reason Stop Dose Admin Acetaminophen 650 mg 02/06/20 21:04 Tylenol PO Q4H PRN Pain (Mild 1-3)/fever Albuterol 6.7 gm 02/07/20 07:00 Proventil Hfa INH QIDRT KAY Apixaban 5 mg 02/06/20 21:00 02/06/20 21:59 Eliquis PO 5 mg BID KAY Administration Aspirin 81 mg 02/07/20 09:00 Halfprin PO DAILY [facility] Dexamethasone 6 mg 02/07/20 09:00 Decadron IVPUSH 02/16/20 09:01 DAILY [facility] Docusate Sodium 100 mg 02/06/20 21:04 02/06/20 21:59 Colace PO 100 mg BID PRN Administration Constipation Folic Acid 1 mg 02/07/20 09:00 Folic Acid PO DAILY [facility] Guaifenesin/Codeine Phosphate 5 ml 02/06/20 21:11 02/06/20 21:59 Robitussin Ac PO 5 ml ASDIRECTED PRN Administration Cough Sodium Chloride 1,000 mls @ 75 mls/hr 02/06/20 21:15 02/06/20 21:05 Normal Saline IV 75 mls/hr ASDIRECTED KAY Administration Azithromycin 500 mg/ Sodium 250 mls @ 250 mls/hr 02/06/20 22:00 02/06/20 22:00 Chloride IV 250 mls/hr Q24H KAY Administration Ceftriaxone Sodium 1 gm/ 50 mls @ 100 mls/hr 02/06/20 21:30 02/06/20 22:00 Sodium Chloride IV 100 mls/hr Q24H KAY Administration Lisinopril 5 mg 02/07/20 09:00 Prinivil PO DAILY [facility] Mometasone Furoate/Formoterol Fumar 2 puff 02/06/20 22:00 02/06/20 22:31 Dulera 200-5 Mcg IH 2 puff BIDRT [facility] Administration Multivitamins/Minerals 1 tab 02/07/20 09:00 Vitamins And Minerals PO DAILY [facility] Non-Formulary Medication 1 drop 02/07/20 09:00 Cyclosporine [Restasis] EYEBOTH DAILY [facility] Omeprazole 20 mg 02/07/20 09:00 Omeprazole PO DAILY [facility] Ondansetron HCl 4 mg 02/06/20 21:04 Zofran Odt PO Q4H PRN nausea, able to take PO Tramadol HCl 50 mg 02/06/20 21:11 Ultram PO Q6H PRN Pain Discontinued Medications Generic Name Dose Route Start Last Admin Trade Name Freq PRN Reason Stop Dose Admin Ceftriaxone Sodium 1,000 mg/ 50 mls @ 100 mls/hr 02/06/20 21:15 Sodium Chloride IV Q24H [facility] Iopamidol 100 ml 02/06/20 19:08 Isovue-370 (76%) IVPUSH 02/06/20 19:09 ONETIME ONE Mometasone Furoate/Formoterol Fumar 2 puff 02/07/20 07:00 Dulera 200-5 Mcg IH BIDRT [facility] - Radiology Interpretation Free Text/Narrative:: Chest CT with contrast: PROCEDURE INFORMATION: Exam: CT Chest With Contrast; Diagnostic Exam date and time: 02/06/2020 7:21 PM Age: 64 years old Clinical indication: Other: Short of breath TECHNIQUE: Imaging protocol: Diagnostic computed tomography of the chest with intravenous contrast. Radiation optimization: All CT scans at this facility use at least one of these dose optimization techniques: automated exposure control; mA and/or kV adjustment per patient size (includes targeted exams where dose is matched to clinical indication); or iterative reconstruction. Contrast material: ISOVUE 300; Contrast volume: 75 ml; Contrast route: INTRAVENOUS (IV); COMPARISON: CR Chest 2V 02/06/2020 6:31 PM FINDINGS: Lungs: The bronchial tree is normal. There are extensive nonspecific ground- glass opacities in both lungs. Pleural space: There are no pleural effusions present. There is no evidence of p neumothorax. Heart: The heart is not enlarged. Mediastinal space: The trachea is normal. Pulmonary arteries: There is no evidence of filling defects within the pulmonary arterial circulation to suggest pulmonary embolism. Aorta: The aorta is normal. Lymph nodes: No pathologic lymph node enlargement is demonstrated. Bones/joints: Unremarkable Soft tissues: The extrathoracic soft tissues are normal. IMPRESSION: 1. No evidence of pulmonary embolism. 2. Nonspecific extensive ground-glass opacities in the lungs. Thank you for allowing us to participate in the care of your patient. Dictated and Authenticated by: Ye Quiroz MD 02/06/2020 7:54 PM Central Time ([place] & [place]) See rad report - Re-Assessments/Exams Free Text/Narrative Re-Assessment/Exam: 02/07/20 00:17 Discussed patient case with Dr. White who agreed to accept the patient for inpatient acute admission. Departure - Departure Time of Disposition: 20:48 Condition: Fair - Discharge Information *PRESCRIPTION DRUG MONITORING PROGRAM REVIEWED*: No *COPY OF PRESCRIPTION DRUG MONITORING REPORT IN PATIENT KIN: No Sepsis Event Note (ED) - Focused Exam Vital Signs: Vital Signs Temp Pulse Resp BP Pulse Ox 02/06/20 18:46 97.1 F 75 25 H 137/66 92 L 02/06/20 17:50 97.3 F 76 21 H 133/72 88 L
[2020-02-06 18:49] LABS: ANION GAP 13.9 mEq/L (7-13); CHLORIDE,CL 101 mmol/L (98-107); SODIUM,NA 135 mmol/L (136-145)
--- NOTE | 2020-02-06 18:57 | CR ---
PROCEDURE INFORMATION: Exam: XR Chest, 2 Views Exam date and time: 02/06/2020 6:31 PM Age: 64 years old Clinical indication: Other: Short of breath TECHNIQUE: Imaging protocol: XR of the chest Views: 2 views. COMPARISON: CR Chest 2V 02/04/2020 12:02 PM FINDINGS: Tubes, catheters and devices: A pacemaker device is present and its leads are in appropriate position. Lungs: There are faint nonspecific ground-glass opacities in both lungs. Pleural space: There are no pleural effusions present. Heart/Mediastinum: The heart is not enlarged. The pulmonary arteries are not enlarged. Bones/joints: Unremarkable IMPRESSION: Nonspecific faint ground-glass opacities in the lungs.
[2020-02-06] MEDS ORDERED: Iopamidol 755 Mg/ML 100 ML Bottle IVPUSH ONE (19:08)
--- NOTE | 2020-02-06 19:54 | CT ---
PROCEDURE INFORMATION: Exam: CT Chest With Contrast; Diagnostic Exam date and time: 02/06/2020 7:21 PM Age: 64 years old Clinical indication: Other: Short of breath TECHNIQUE: Imaging protocol: Diagnostic computed tomography of the chest with intravenous contrast. Radiation optimization: All CT scans at this facility use at least one of these dose optimization techniques: automated exposure control; mA and/or kV adjustment per patient size (includes targeted exams where dose is matched to clinical indication); or iterative reconstruction. Contrast material: ISOVUE 300; Contrast volume: 75 ml; Contrast route: INTRAVENOUS (IV); COMPARISON: CR Chest 2V 02/06/2020 6:31 PM FINDINGS: Lungs: The bronchial tree is normal. There are extensive nonspecific ground-glass opacities in both lungs. Pleural space: There are no pleural effusions present. There is no evidence of pneumothorax. Heart: The heart is not enlarged. Mediastinal space: The trachea is normal. Pulmonary arteries: There is no evidence of filling defects within the pulmonary arterial circulation to suggest pulmonary embolism. Aorta: The aorta is normal. Lymph nodes: No pathologic lymph node enlargement is demonstrated. Bones/joints: Unremarkable Soft tissues: The extrathoracic soft tissues are normal. IMPRESSION: 1. No evidence of pulmonary embolism. 2. Nonspecific extensive ground-glass opacities in the lungs.
[2020-02-06] MEDS ORDERED: Ondansetron 4 MG Tab.DIS PO PRN (21:04)
[2020-02-06] MEDS ORDERED: Acetaminophen 325 MG Tab PO PRN (21:04)
[2020-02-06] MEDS ORDERED: Sodium Chloride 0.9% 1,000 ML IV SCH (21:15)
[2020-02-06] MEDS ORDERED: cefTRIAXone 1,000 MG in Sodium Chloride 0.9% 50 ML IV SCH (21:15)
[2020-02-06] MEDS: Docusate Sodium 100 MG Cap PO PRN (21:59)
[2020-02-06] MEDS: Codeine/guaiFENesin 10-100 MG/5 ML Syrup 5 ML Cup PO PRN (21:59)
[2020-02-06] MEDS: Apixaban 5 MG Tab PO SCH (21:59)
[2020-02-06] MEDS: Azithromycin 500 MG in Sodium Chloride 0.9% 250 ML IV SCH (22:00)
[2020-02-06] MEDS: cefTRIAXone 1 GM in Sodium Chloride 0.9% 50 ML IV SCH (22:00)
[2020-02-06] MEDS: Formoterol/Mometasone 200-5 MCG 8.8 GM Inhaler IH SCH (22:31)
--- NOTE | 2020-02-07 00:57 | HP ---
CHIEF COMPLAINT: Shortness of breath. HISTORY OF PRESENT ILLNESS: The patient is a 64-year-old lady who was admitted through the emergency room because the patient was brought in by [place] because of continued shortness of breath with mild exertion. The patient did test positive for COVID-19 last on 01/23, and she was initially placed on dexamethasone and azithromycin and later changed to dexamethasone and Levaquin, but the patient continued to feel ill and weak with shortness of breath and coughing spells. The patient mentioned that her oxygen saturation falls to 88% without oxygen at home. The patient also complained of fever of 101 this morning. Because of the above, she was seen in the emergency room, and in the emergency room, she had a CAT scan of the chest which showed ground-glass appearance, infiltrates, but negative for pulmonary embolism. Her D-dimer is also more than 5000. Because of the above and hypoxemia, she was then admitted for further evaluation and management. REVIEW OF SYSTEMS: Patient denies any headache. Denies any chest pain, orthopnea, pedal edema, diarrhea, dysuria. PAST MEDICAL HISTORY: Remarkable for arrhythmia status post pacemaker placement, high cholesterol, hypertension, obstructive sleep apnea, gastroesophageal reflux. HOME MEDICATION: Calcium carbonate with vitamin D daily, multivitamins daily, Ultram 50 mg q.6 hours p.r.n., aspirin, Restasis, Tylenol, folic acid, omeprazole, Robitussin AC, dexamethasone 4 mg daily, levofloxacin and lisinopril 5 mg daily. ALLERGIES: Ibuprofen. SOCIAL HISTORY: Patient is . Nonsmoker, nonalcohol drinker. PHYSICAL EXAMINATION: General: The patient is very pleasant. She is alert and oriented with some coughing spells, not in any acute respiratory distress. Vital Signs: Blood pressure is 137/66, pulse of 75, respirations 25, temperature of 97.1, and pulse oximetry of 92. SHEENT: Normocephalic. There are pink palpebral conjunctivae. Sclerae anicteric. No JVD. No lymphadenopathy. Heart: Regular rate and rhythm. Normal S1 and S2. No gallops. No rubs. Lungs: Diminished breath sounds on both bases, but no significant crackles. No wheezing. Abdomen: Mild to moderately obese, otherwise soft, nontender. Bowel sounds positive. Extremities: Negative for any pedal edema. No calf tenderness. LABORATORY WORKUP: CBC unremarkable. Neutrophils 87.3. D-dimer is more than 5000. Comp panel: Sodium is 135, anion gap is 13.9, glucose is 112. The rest of the panel unremarkable. CAT scan of the chest showed no evidence of pulmonary embolism and there are nonspecific extensive ground-glass opacities in the lungs. ADMITTING DIAGNOSES: 1. COVID pneumonia. 2. Hypoxemia. 3. Hypertension. 4. Status post permanent pacemaker placement. 5. Obstructive sleep apnea. TREATMENT PLAN: The patient is going to be admitted to General Medicine floor. She will be empirically started on IV antibiotics with Rocephin and azithromycin IV. She will be on IV dexamethasone. She will also be placed on Eliquis as an anticoagulant because of the significantly elevated D-dimer. We will resume her home medication and the rest of the management as necessary. The patient is a full code. [facility] /[id number]
[2020-02-07] MEDS: Codeine/guaiFENesin 10-100 MG/5 ML Syrup 5 ML Cup PO PRN ×4 (01:01→22:03)
[2020-02-07 06:56] LABS: ANION GAP 13.6 mEq/L (7-13); CHLORIDE,CL 105 mmol/L (98-107); SODIUM,NA 139 mmol/L (136-145)
[2020-02-07] MEDS ORDERED: Formoterol/Mometasone 200-5 MCG 8.8 GM Inhaler IH SCH (07:00)
[2020-02-07] MEDS: Multivitamins, Therapeutic with Minerals Tab PO SCH (08:18)
[2020-02-07] MEDS: Lisinopril 5 MG Tab PO SCH (08:18)
[2020-02-07] MEDS: Omeprazole 20 MG Cap.CR PO SCH (08:18)
[2020-02-07] MEDS: Folic Acid 1 MG Tab PO SCH (08:18)
[2020-02-07] MEDS: Apixaban 5 MG Tab PO SCH ×2 (08:18→22:03)
[2020-02-07] MEDS: Dexamethasone 4 MG/ML SDV IVPUSH SCH (08:18)
[2020-02-07] MEDS: Aspirin 81 MG Tab.EC PO SCH (08:18)
[2020-02-07] MEDS: Albuterol 6.7 GM Inhaler INH SCH ×4 (08:19→22:14)
[2020-02-07] MEDS: Fluticasone Propionate Nasal Spray 16 GM Bottle NASBOTH SCH (08:48)
[2020-02-07] MEDS: Formoterol/Mometasone 200-5 MCG 8.8 GM Inhaler IH SCH ×2 (08:48→17:02)
--- NOTE | 2020-02-07 10:38 | PN ---
DATE: 02/07/2020 SUBJECTIVE: The patient is a 64-year-old lady who was admitted with hypoxemia and COVID pneumonia. The patient this morning is feeling slightly better and she denies any worsening of shortness of breath. Still has some mild cough, but this also has improved. She denies any chest pain, abdominal pain, orthopnea, or PND. Oxygen saturation this morning is 92% on 4 L per nasal cannula. LABORATORY DATA: Lab workup this morning, CBC; WBC is 12, hemoglobin is 12.3, hematocrit is 36.1, and platelet is 277. Chem-6: Calcium is 8.4. The rest of the panel unremarkable. OBJECTIVE: Vital Signs: Blood pressure is 124/64, pulse 72, respirations 16, temperature of 98.2, and saturation is 92% on 4 L per nasal cannula. Heart: Regular rate and rhythm. Normal S1 and S2. No gallops. No rubs. Lungs: Have diminished breath sounds on both bases, but no crackles and no wheezing. Abdomen: Soft and nontender. Bowel sounds positive. Extremities: Negative for any pedal edema. No calf tenderness. MEDICATIONS: Reviewed. PLAN: We will continue with her present management and continue with her IV ceftriaxone and IV azithromycin and IV dexamethasone. We will also continue with her apixaban and the rest of her management. We will recheck her D-dimer in a.m. [facility] /[id number]
[2020-02-07] MEDS: traMADol 50 MG Tab PO PRN ×2 (13:43→22:13)
[2020-02-07] MEDS: cefTRIAXone 1 GM in Sodium Chloride 0.9% 50 ML IV SCH (22:03)
[2020-02-07] MEDS: Benzocaine/Cetylpyridinium/Menthol Lozenge MUCMEM PRN (22:03)
[2020-02-07] MEDS: Azithromycin 500 MG in Sodium Chloride 0.9% 250 ML IV SCH (22:03)
[2020-02-08] MEDS: Benzocaine/Cetylpyridinium/Menthol Lozenge MUCMEM PRN (01:34)
[2020-02-08] MEDS: Codeine/guaiFENesin 10-100 MG/5 ML Syrup 5 ML Cup PO PRN ×3 (04:20→21:33)
[2020-02-08] MEDS: Formoterol/Mometasone 200-5 MCG 8.8 GM Inhaler IH SCH ×2 (07:53→17:18)
[2020-02-08] MEDS: Albuterol 6.7 GM Inhaler INH SCH ×4 (07:53→20:27)
[2020-02-08] MEDS: Multivitamins, Therapeutic with Minerals Tab PO SCH (08:52)
[2020-02-08] MEDS: Aspirin 81 MG Tab.EC PO SCH (08:52)
[2020-02-08] MEDS: Apixaban 5 MG Tab PO SCH ×2 (08:52→20:25)
[2020-02-08] MEDS: Omeprazole 20 MG Cap.CR PO SCH (08:52)
[2020-02-08] MEDS: Folic Acid 1 MG Tab PO SCH (08:53)
[2020-02-08] MEDS: Lisinopril 5 MG Tab PO SCH (08:53)
[2020-02-08] MEDS: Dexamethasone 4 MG/ML SDV IVPUSH SCH (08:53)
[2020-02-08] MEDS: Fluticasone Propionate Nasal Spray 16 GM Bottle NASBOTH SCH (08:54)
[2020-02-08] MEDS: traMADol 50 MG Tab PO PRN ×2 (09:03→20:33)
--- NOTE | 2020-02-08 10:37 | PN ---
DATE: 02/08/2020 SUBJECTIVE: The patient is slowly improving, although she is still complaining of some episodes of coughing spells and still slightly short of breath, but overall she is improving. She denies any orthopnea, PND, abdominal pain, fever, chills, nor any other complaints. LABORATORY DATA: Lab workup this morning, D-dimer is 4240 (improving). OBJECTIVE: Vital Signs: Blood pressure is 127/72, pulse 67, respirations 20, temperature of 97.9, and saturation is 93% on room air. Heart: Regular rate and rhythm. Normal S1 and S2. No gallops. No rubs. Lungs: Diminished breath sounds on both bases, but no significant crackles, no wheezing. Abdomen: Soft and nontender. Bowel sounds positive. Extremities: Negative for any pedal edema. No calf tenderness. MEDICATIONS: Reviewed. PLAN: We will continue with her IV antibiotics, azithromycin and ceftriaxone, and we will continue with dexamethasone and the rest of her management. [facility] /[id number]
[2020-02-08] MEDS: cefTRIAXone 1 GM in Sodium Chloride 0.9% 50 ML IV SCH (21:31)
[2020-02-08] MEDS: Azithromycin 500 MG in Sodium Chloride 0.9% 250 ML IV SCH (22:05)
[2020-02-08] MEDS: Melatonin 3 MG Tab PO PRN (23:32)
[2020-02-09] MEDS: Sodium Chloride 0.9% 10 ML Syringe FLUSH PRN ×4 (00:05→21:23)
[2020-02-09] MEDS: Codeine/guaiFENesin 10-100 MG/5 ML Syrup 5 ML Cup PO PRN ×2 (04:12→20:50)
[2020-02-09] MEDS: Albuterol 6.7 GM Inhaler INH SCH ×4 (06:35→21:28)
[2020-02-09] MEDS: Formoterol/Mometasone 200-5 MCG 8.8 GM Inhaler IH SCH ×2 (06:36→17:34)
[2020-02-09] MEDS: Multivitamins, Therapeutic with Minerals Tab PO SCH (08:29)
[2020-02-09] MEDS: Omeprazole 20 MG Cap.CR PO SCH (08:29)
[2020-02-09] MEDS: Folic Acid 1 MG Tab PO SCH (08:30)
[2020-02-09] MEDS: traMADol 50 MG Tab PO PRN ×2 (08:30→20:51)
[2020-02-09] MEDS: Lisinopril 5 MG Tab PO SCH (08:30)
[2020-02-09] MEDS: Aspirin 81 MG Tab.EC PO SCH (08:30)
[2020-02-09] MEDS: Apixaban 5 MG Tab PO SCH ×2 (08:30→20:50)
[2020-02-09] MEDS: Dexamethasone 4 MG/ML SDV IVPUSH SCH (08:31)
[2020-02-09] MEDS: Fluticasone Propionate Nasal Spray 16 GM Bottle NASBOTH SCH (08:38)
--- NOTE | 2020-02-09 11:01 | PN ---
DATE: 02/09/2020 SUBJECTIVE: The patient is still having significant coughing spells, but overall she is feeling albeit better. She denies any worsening of shortness of breath, and the patient's oxygen saturation is 93% on 3 L per nasal cannula. The patient denies any fever or chills, orthopnea, PND, abdominal pain, or any other complaints. OBJECTIVE: Vital Signs: Blood pressure is 113/69, pulse of 70, respirations of 18, temperature of 97.4, saturation is 93% on 3 L per nasal cannula. Heart: Regular rate and rhythm. No gallops. No rubs. Lungs: Have diminished breath sounds in both bases, but no significant crackles, no wheezing. Abdomen: Mild to moderately obese. Otherwise, soft, nontender. Bowel sounds positive. Extremities: Negative for any pedal edema. No calf tenderness. MEDICATIONS: Reviewed. PLAN: We will continue with her IV antibiotics and continue with IV dexamethasone. I am going to discontinue her lisinopril to make sure that this is not the one that is causing her paroxysms of cough. We will recheck her D- dimer in the a.m. and also will recheck basic metabolic panel as well as CBC. [facility] /[id number]
[2020-02-09] MEDS: cefTRIAXone 1 GM in Sodium Chloride 0.9% 50 ML IV SCH (20:47)
[2020-02-09] MEDS: Melatonin 3 MG Tab PO PRN (20:50)
[2020-02-09] MEDS: Azithromycin 500 MG in Sodium Chloride 0.9% 250 ML IV SCH (21:26)
[2020-02-09] MEDS: Benzocaine/Cetylpyridinium/Menthol Lozenge MUCMEM PRN (21:58)
[2020-02-10 06:11] LABS: ANION GAP 12.8 mEq/L (7-13); CHLORIDE,CL 103 mmol/L (98-107); SODIUM,NA 138 mmol/L (136-145)
[2020-02-10] MEDS: Albuterol 6.7 GM Inhaler INH SCH ×4 (07:15→22:22)
[2020-02-10] MEDS: Formoterol/Mometasone 200-5 MCG 8.8 GM Inhaler IH SCH ×2 (07:16→17:37)
[2020-02-10] MEDS: Codeine/guaiFENesin 10-100 MG/5 ML Syrup 5 ML Cup PO PRN (07:22)
[2020-02-10] MEDS: traMADol 50 MG Tab PO PRN (07:22)
[2020-02-10] MEDS: Benzocaine/Cetylpyridinium/Menthol Lozenge MUCMEM PRN (07:22)
[2020-02-10] MEDS: Omeprazole 20 MG Cap.CR PO SCH (09:03)
[2020-02-10] MEDS: Folic Acid 1 MG Tab PO SCH (09:04)
[2020-02-10] MEDS: Aspirin 81 MG Tab.EC PO SCH (09:04)
[2020-02-10] MEDS: Fluticasone Propionate Nasal Spray 16 GM Bottle NASBOTH SCH (09:04)
[2020-02-10] MEDS: Multivitamins, Therapeutic with Minerals Tab PO SCH (09:04)
[2020-02-10] MEDS: Sodium Chloride 0.9% 10 ML Syringe FLUSH PRN (09:05)
[2020-02-10] MEDS: Dexamethasone 4 MG/ML SDV IVPUSH SCH (09:05)
[2020-02-10] MEDS: Apixaban 5 MG Tab PO SCH ×2 (09:05→22:22)
[2020-02-10] MEDS: Docusate Sodium 100 MG Cap PO PRN (09:14)
--- NOTE | 2020-02-10 10:44 | PN ---
DATE: 02/10/2020 SUBJECTIVE: The patient still has paroxysms of cough, but overall, she is feeling slightly better, but she still needs oxygen to keep her saturation above 90%, but she denies any fever, chills, nausea, vomiting, diarrhea, abdominal pain, or any other complaints. OBJECTIVE: Vital Signs: This morning blood pressure is 124/73, pulse 73, respirations of 18, temperature of 98.4, and saturation is 91% on 3 L per nasal cannula. Heart: Regular rate and rhythm. Normal S1 and S2. No gallops. No rubs. Lungs: Diminished breath sounds on both bases but no significant crackles. No wheezing. Abdomen: Mild to moderately obese, soft, and nontender. Bowel sounds positive. Extremities: Negative for any pedal edema. No calf tenderness. LABORATORY DATA: Lab workup this morning; CBC: WBC 11.3, hemoglobin is 12.6, hematocrit is 37.5, and platelet is 311. D-dimer is 4700 and chem-6, glucose is 103. The rest of the panel unremarkable. MEDICATIONS: Reviewed. PLAN: We will continue with her Eliquis and IV azithromycin and ceftriaxone and continue with IV dexamethasone and the rest of her management. [facility] /[id number]
[2020-02-10] MEDS: cefTRIAXone 1 GM in Sodium Chloride 0.9% 50 ML IV SCH (21:10)
[2020-02-10] MEDS: Azithromycin 500 MG in Sodium Chloride 0.9% 250 ML IV SCH (22:22)
[2020-02-11] MEDS: Codeine/guaiFENesin 10-100 MG/5 ML Syrup 5 ML Cup PO PRN ×4 (00:08→22:43)
[2020-02-11] MEDS: Melatonin 3 MG Tab PO PRN ×2 (00:08→22:43)
[2020-02-11] MEDS: traMADol 50 MG Tab PO PRN ×2 (00:13→22:43)
[2020-02-11] MEDS: Formoterol/Mometasone 200-5 MCG 8.8 GM Inhaler IH SCH ×2 (07:46→17:49)
[2020-02-11] MEDS: Albuterol 6.7 GM Inhaler INH SCH ×4 (07:47→21:18)
[2020-02-11] MEDS: Omeprazole 20 MG Cap.CR PO SCH (09:25)
[2020-02-11] MEDS: Aspirin 81 MG Tab.EC PO SCH (09:25)
[2020-02-11] MEDS: Apixaban 5 MG Tab PO SCH ×2 (09:25→21:14)
[2020-02-11] MEDS: Folic Acid 1 MG Tab PO SCH (09:25)
[2020-02-11] MEDS: Multivitamins, Therapeutic with Minerals Tab PO SCH (09:26)
[2020-02-11] MEDS: Fluticasone Propionate Nasal Spray 16 GM Bottle NASBOTH SCH (09:26)
[2020-02-11] MEDS: Dexamethasone 4 MG/ML SDV IVPUSH SCH (09:27)
--- NOTE | 2020-02-11 11:27 | PN ---
DATE: 02/11/2020 SUBJECTIVE: The patient is improving very slowly and she mentioned that she is slightly better, but she still has the paroxysms of cough. She is still requiring oxygen to keep her saturation above 90. She denies though any chest pain, palpitation, fever, chills, abdominal pain, nausea, vomiting. OBJECTIVE: Vital Signs: Blood pressure is 134/77, pulse of 85, respiration of 20, temperature of 98.7, and saturation is 92% on 3 L per nasal cannula. Heart: Regular rate and rhythm. Normal S1 and S2. No gallops. No rubs. Lungs: Equal bilaterally. No crackles. No wheezing. Abdomen: Soft, nontender. Bowel sounds positive. Extremities: Negative for any significant pedal edema. No calf tenderness. MEDICATIONS: Reviewed. PLAN: We will continue with her IV antibiotics and dexamethasone as well as Eliquis. We will recheck CBC, basic metabolic panel, and D-dimer in a.m. [facility] /[id number]
[2020-02-11] MEDS: Non-Formulary Medication 1 Each (Cyclosporine [Restasis] 1 DROP) EYEBOTH SCH (16:25)
[2020-02-11] MEDS: Sodium Chloride 0.9% 10 ML Syringe FLUSH PRN (21:14)
[2020-02-11] MEDS: cefTRIAXone 1 GM in Sodium Chloride 0.9% 50 ML IV SCH (21:15)
[2020-02-11] MEDS: Azithromycin 500 MG in Sodium Chloride 0.9% 250 ML IV SCH (21:49)
[2020-02-12] MEDS: Formoterol/Mometasone 200-5 MCG 8.8 GM Inhaler IH SCH ×2 (06:10→18:07)
[2020-02-12] MEDS: Albuterol 6.7 GM Inhaler INH SCH ×4 (06:11→21:09)
[2020-02-12 06:59] LABS: ANION GAP 14.2 mEq/L (7-13); CHLORIDE,CL 103 mmol/L (98-107); SODIUM,NA 138 mmol/L (136-145)
--- NOTE | 2020-02-12 09:39 | PN ---
DATE: 02/12/2020 SUBJECTIVE: The patient is doing fairly well, but she still has paroxysms of coughing spells, but she denies any worsening of shortness of breath and denies any chest pain, abdominal pain, fever, chills, nor any other complaints. LABORATORY DATA: Lab workup this morning, CBC; WBC 11.2, hemoglobin is 12.8, hematocrit is 38.2, platelet is 290, and D-dimer is more than 5000. Chem-6, BUN is 20, the rest of the panel unremarkable. OBJECTIVE: Vital Signs: Blood pressure is 124/70, pulse 75, respiration of 20, temperature of 98.9, and saturation is 95% on 3 L per nasal cannula. Heart: Regular rate and rhythm. Normal S1 and S2. No gallops. No rubs. Lungs: Have diminished breath sounds on both bases, but no significant crackles. No wheezing. Abdomen: Soft and nontender. Bowel sounds positive. Extremities: Negative for any pedal edema. No calf tenderness. MEDICATIONS: Reviewed. PLAN: We will continue with her IV azithromycin, ceftriaxone, apixaban, and IV dexamethasone and continue the rest of her management. I am also going to put her on some Tessalon Perles for symptomatic cough relief. [facility] /[id number]
[2020-02-12] MEDS: Dexamethasone 4 MG/ML SDV IVPUSH SCH (09:56)
[2020-02-12] MEDS: Benzonatate 100 MG Cap PO SCH ×3 (09:57→21:07)
[2020-02-12] MEDS: Omeprazole 20 MG Cap.CR PO SCH (09:57)
[2020-02-12] MEDS: Aspirin 81 MG Tab.EC PO SCH (09:57)
[2020-02-12] MEDS: Folic Acid 1 MG Tab PO SCH (09:57)
[2020-02-12] MEDS: Apixaban 5 MG Tab PO SCH ×2 (09:57→21:07)
[2020-02-12] MEDS: Multivitamins, Therapeutic with Minerals Tab PO SCH (09:58)
[2020-02-12] MEDS: traMADol 50 MG Tab PO PRN ×2 (10:01→23:01)
[2020-02-12] MEDS: Fluticasone Propionate Nasal Spray 16 GM Bottle NASBOTH SCH (10:02)
[2020-02-12] MEDS: Non-Formulary Medication 1 Each (Cyclosporine [Restasis] 1 DROP) EYEBOTH SCH ×3 (11:57→12:00)
[2020-02-12] MEDS: cefTRIAXone 1 GM in Sodium Chloride 0.9% 50 ML IV SCH (21:09)
[2020-02-12] MEDS: Sodium Chloride 0.9% 10 ML Syringe FLUSH PRN (21:57)
[2020-02-12] MEDS: Azithromycin 500 MG in Sodium Chloride 0.9% 250 ML IV SCH (21:58)
[2020-02-12] MEDS: Codeine/guaiFENesin 10-100 MG/5 ML Syrup 5 ML Cup PO PRN (23:01)
[2020-02-12] MEDS: Melatonin 3 MG Tab PO PRN (23:01)
[2020-02-13] MEDS: Apixaban 5 MG Tab PO SCH (08:42)
[2020-02-13] MEDS: Folic Acid 1 MG Tab PO SCH (08:42)
[2020-02-13] MEDS: Sodium Chloride 0.9% 10 ML Syringe FLUSH PRN (08:42)
[2020-02-13] MEDS: Benzonatate 100 MG Cap PO SCH ×2 (08:42→14:13)
[2020-02-13] MEDS: Dexamethasone 4 MG/ML SDV IVPUSH SCH (08:42)
[2020-02-13] MEDS: Multivitamins, Therapeutic with Minerals Tab PO SCH (08:42)
[2020-02-13] MEDS: Aspirin 81 MG Tab.EC PO SCH (08:42)
[2020-02-13] MEDS: Omeprazole 20 MG Cap.CR PO SCH (08:42)
[2020-02-13] MEDS: Formoterol/Mometasone 200-5 MCG 8.8 GM Inhaler IH SCH (08:57)
[2020-02-13] MEDS: Fluticasone Propionate Nasal Spray 16 GM Bottle NASBOTH SCH (08:57)
[2020-02-13] MEDS: Albuterol 6.7 GM Inhaler INH SCH ×3 (08:57→16:20)
--- NOTE | 2020-02-13 11:48 | PCM.PN ---
- Patient Data Vitals - Most Recent: Last Vital Signs Temp 97.5 F 02/13/20 08:39 Pulse 80 02/13/20 08:39 Resp 20 02/13/20 08:39 BP 107/62 02/13/20 08:39 Pulse Ox 93 L 02/13/20 08:39 Weight - Most Recent: 217 lb I&O - Last 24 Hours: Intake & Output 02/12/20 02/13/20 02/13/20 22:59 06:59 14:59 Intake Total 282 755 360 Balance 282 755 360 Med Orders - Current: Current Medications Acetaminophen (Tylenol) 650 mg PO Q4H PRN PRN Reason: Pain (Mild 1-3)/fever Last Admin: 02/07/20 03:36 Dose: 650 mg Documented by: Albuterol (Proventil Hfa) 6.7 gm INH QIDRT [facility] Last Admin: 02/13/20 08:57 Dose: 1 puff Documented by: Apixaban (Eliquis) 5 mg PO BID [facility] Last Admin: 02/13/20 08:42 Dose: 5 mg Documented by: Aspirin (Halfprin) 81 mg PO DAILY [facility] Last Admin: 02/13/20 08:42 Dose: 81 mg Documented by: Benzocaine/Menthol (Cepacol Sore Throat) 1 lozenge MUCMEM QID PRN PRN Reason: Sore Throat Last Admin: 02/10/20 07:22 Dose: 1 lozenge Documented by: Benzonatate (Tessalon Perles) 100 mg PO TID [facility] Last Admin: 02/13/20 08:42 Dose: 100 mg Documented by: Dexamethasone (Decadron) 6 mg IVPUSH DAILY [facility] Stop: 02/16/20 09:01 Last Admin: 02/13/20 08:42 Dose: 6 mg Documented by: Docusate Sodium (Colace) 100 mg PO BID PRN PRN Reason: Constipation Last Admin: 02/10/20 09:14 Dose: 100 mg Documented by: Fluticasone Propionate (Flonase) 0 gm NASBOTH DAILY [facility] Last Admin: 02/13/20 08:57 Dose: 1 spray Documented by: Folic Acid (Folic Acid) 1 mg PO DAILY [facility] Last Admin: 02/13/20 08:42 Dose: 1 mg Documented by: Guaifenesin/Codeine Phosphate (Robitussin Ac) 5 ml PO QID PRN PRN Reason: Cough Last Admin: 02/12/20 23:01 Dose: 5 ml Documented by: Azithromycin 500 mg/ Sodium (Chloride) 250 mls @ 250 mls/hr IV Q24H [facility] Last Admin: 02/12/20 21:58 Dose: 250 mls/hr Documented by: Ceftriaxone Sodium 1 gm/ (Sodium Chloride) 50 mls @ 100 mls/hr IV Q24H [facility] Last Infusion: 02/12/20 21:57 Dose: Infused Documented by: Melatonin (Melatonin) 3 mg PO BEDTIME PRN PRN Reason: Insomnia Last Admin: 02/12/20 23:01 Dose: 3 mg Documented by: Mometasone Furoate/Formoterol Fumar (Dulera 200-5 Mcg) 2 puff IH BIDRT [facility] Last Admin: 02/13/20 08:57 Dose: 2 puff Documented by: Multivitamins/Minerals (Vitamins And Minerals) 1 tab PO DAILY [facility] Last Admin: 02/13/20 08:42 Dose: 1 tab Documented by: Omeprazole (Omeprazole) 20 mg PO DAILY [facility] Last Admin: 02/13/20 08:42 Dose: 20 mg Documented by: Ondansetron HCl (Zofran Odt) 4 mg PO Q4H PRN PRN Reason: nausea, able to take PO Sodium Chloride (Saline Flush) 10 ml FLUSH ASDIRECTED PRN PRN Reason: IV Use Last Admin: 02/13/20 08:42 Dose: 10 ml Documented by: Tramadol HCl (Ultram) 50 mg PO Q6H PRN PRN Reason: Pain Last Admin: 02/12/20 23:01 Dose: 50 mg Documented by: Discontinued Medications Guaifenesin/Codeine Phosphate (Robitussin Ac) 5 ml PO ASDIRECTED PRN PRN Reason: Cough Last Admin: 02/09/20 04:12 Dose: 5 ml Documented by: Sodium Chloride (Normal Saline) 1,000 mls @ 75 mls/hr IV ASDIRECTED [facility] Last Admin: 02/06/20 21:05 Dose: 75 mls/hr Documented by: Ceftriaxone Sodium 1,000 mg/ (Sodium Chloride) 50 mls @ 100 mls/hr IV Q24H [facility] Last Admin: 02/07/20 00:22 Dose: Not Given Documented by: Iopamidol (Isovue-370 (76%)) 100 ml IVPUSH ONETIME ONE Stop: 02/06/20 19:09 Last Admin: 02/07/20 14:24 Dose: Not Given Documented by: Lisinopril (Prinivil) 5 mg PO DAILY [facility] Last Admin: 02/09/20 08:30 Dose: 5 mg Documented by: Mometasone Furoate/Formoterol Fumar (Dulera 200-5 Mcg) 2 puff IH BIDRT [facility] Non-Formulary Medication (Cyclosporine [Restasis]) 1 drop EYEBOTH DAILY [facility] Last Admin: 02/12/20 12:00 Dose: Not Given Documented by: Sepsis Event Note - Evaluation Sepsis Screening Result: No Definite Risk - Focused Exam Vital Signs: Vital Signs Temp Pulse Resp BP Pulse Ox 02/13/20 08:39 97.5 F 80 20 107/62 93 L 02/13/20 05:48 94 L 02/13/20 05:35 97.4 F 70 20 93 L 02/13/20 00:00 98.8 F 74 20 133/71 95 - My Orders Last 24 Hours: My Active Orders 02/13/20 10:59 6 Minute Walk Test [OM.PC] Routine
[2020-02-13 12:21] VITALS: BP 115/68; PULSE 75
--- NOTE | 2020-02-13 14:20 | PCM.DCSUM1 ---
Discharge Summary - Hospital Course Free Text/Narrative:: Patient is a 64-year-old female with medical history except for paroxysmal supraventricular tachycardia and bradycardia status post pacemaker placement, hypertension, sleep apnea, GERD, and obesity who was admitted for pneumonia related to COVID-19 and acute respiratory failure with hypoxia. Patient was treated per protocol with IV dexamethasone, Eliquis for elevated D-dimer, and IV antibiotics with Rocephin and azithromycin. Patient improved clinically. She is however still needing up to 2 L of oxygen with exertion and at rest to keep O2 saturation in the 90s. She is being discharged home to continue Eliquis, Decadron, and supplemental oxygen. She is to follow-up with PCP. Diagnosis: Stroke: No - Discharge Data Discharge Date: 02/13/20 Discharge Disposition: Home, Self-Care 01 Condition: Good - Referral to Home Health Primary Care Physician: Petra Longo NP - Discharge Plan *PRESCRIPTION DRUG MONITORING PROGRAM REVIEWED*: No *COPY OF PRESCRIPTION DRUG MONITORING REPORT IN PATIENT KIN: No Prescriptions/Med Rec: RX: Mometasone/Formoterol [Dulera 200-5 MCG] 2 puff IH BIDRT #1 inhaler RX: Apixaban [Eliquis] 5 mg PO BID #28 tablet RX: Albuterol [Proventil HFA] 6.7 gm INH QIDRT #1 inhaler Home Medications: Home Meds RX: Calcium Carb, Citrate/Vit D3 [Calcium + D3 ER Tablet] 1 tab PO DAILY 06/06/13 [History] RX: Multivitamin with Minerals [Joaquin Multivitamin with Mineral] 1 tab PO DAILY 06/06/13 [History] RX: Aspirin [Adult Low Dose Aspirin EC] 81 mg PO DAILY 09/06/17 [History] RX: cycloSPORINE [Restasis] 1 drop EYEBOTH DAILY 09/06/17 [History] RX: Acetaminophen 1,000 mg PO TID 11/04/17 [History] RX: Folic Acid 1 mg PO DAILY 12/05/18 [History] RX: Omeprazole 20 mg PO DAILY 12/05/18 [History] RX: Codeine/guaiFENesin [Robitussin AC] 5 ml PO ASDIRECTED PRN 02/06/20 [History] RX: dexAMETHasone [Dexamethasone] 4 mg PO DAILY 02/06/20 [History] RX: lisinopriL [Lisinopril] 5 mg PO DAILY 02/06/20 [History] RX: Cetirizine [ZyrTEC] 10 mg PO DAILY 02/07/20 [History] RX: Albuterol [Proventil HFA] 6.7 gm INH QIDRT #1 inhaler 02/13/20 [Rx] RX: Apixaban [Eliquis] 5 mg PO BID #28 tablet 02/13/20 [Rx] RX: Mometasone/Formoterol [Dulera 200-5 MCG] 2 puff IH BIDRT #1 inhaler 02/13/20 [Rx] Patient Handouts: COVID-19 Frequently Asked Questions, COVID-19: How to Protect Yourself and Others - CDC, Infection Prevention in the Home, Coronavirus Information 05/28/19, Dexamethasone tablets Referrals: Petra Longo, MEDICAID ANALYST [Primary Care Provider] - - Discharge Summary/Plan Comment DC Time >30 min.: Yes - General Info Date of Service: 02/13/20 Admission Dx/Problem (Free Text: COVID-19 pneumonia with respiratory failure Subjective Update: Patient continues to need up to 2 L of oxygen at rest. Also reports that she gets short of breath when she ambulates. Denies fevers, chills, nausea, vomiting, diarrhea, constipation, dysuria, hematuria, or any new symptoms. She aspirated and walking desaturation test and O2 saturation dropped to 84 L on room air. She required up to 2 L of oxygen with exertion to bring O2 saturation into the 90s. - Patient Data Vitals - Most Recent: Last Vital Signs Temp 98.2 F 02/13/20 12:21 Pulse 75 02/13/20 12:21 Resp 20 02/13/20 12:21 BP 115/68 02/13/20 12:21 Pulse Ox 93 L 02/13/20 13:39 Weight - Most Recent: 217 lb I&O - Last 24 hours: Intake & Output 02/12/20 02/13/20 02/13/20 22:59 06:59 14:59 Intake Total 282 755 360 Balance 282 755 360 Med Orders - Current: Current Medications Acetaminophen (Tylenol) 650 mg PO Q4H PRN PRN Reason: Pain (Mild 1-3)/fever Last Admin: 02/07/20 03:36 Dose: 650 mg Documented by: Albuterol (Proventil Hfa) 6.7 gm INH QIDRT [facility] Last Admin: 02/13/20 12:20 Dose: 2 puff Documented by: Apixaban (Eliquis) 5 mg PO BID [facility] Last Admin: 02/13/20 08:42 Dose: 5 mg Documented by: Aspirin (Halfprin) 81 mg PO DAILY [facility] Last Admin: 02/13/20 08:42 Dose: 81 mg Documented by: Benzocaine/Menthol (Cepacol Sore Throat) 1 lozenge MUCMEM QID PRN PRN Reason: Sore Throat Last Admin: 02/10/20 07:22 Dose: 1 lozenge Documented by: Benzonatate (Tessalon Perles) 100 mg PO TID [facility] Last Admin: 02/13/20 14:13 Dose: 100 mg Documented by: Dexamethasone (Decadron) 6 mg IVPUSH DAILY [facility] Stop: 02/16/20 09:01 Last Admin: 02/13/20 08:42 Dose: 6 mg Documented by: Docusate Sodium (Colace) 100 mg PO BID PRN PRN Reason: Constipation Last Admin: 02/10/20 09:14 Dose: 100 mg Documented by: Fluticasone Propionate (Flonase) 0 gm NASBOTH DAILY [facility] Last Admin: 02/13/20 08:57 Dose: 1 spray Documented by: Folic Acid (Folic Acid) 1 mg PO DAILY [facility] Last Admin: 02/13/20 08:42 Dose: 1 mg Documented by: Guaifenesin/Codeine Phosphate (Robitussin Ac) 5 ml PO QID PRN PRN Reason: Cough Last Admin: 02/12/20 23:01 Dose: 5 ml Documented by: Azithromycin 500 mg/ Sodium (Chloride) 250 mls @ 250 mls/hr IV Q24H [facility] Last Admin: 02/12/20 21:58 Dose: 250 mls/hr Documented by: Ceftriaxone Sodium 1 gm/ (Sodium Chloride) 50 mls @ 100 mls/hr IV Q24H [facility] Last Infusion: 02/12/20 21:57 Dose: Infused Documented by: Melatonin (Melatonin) 3 mg PO BEDTIME PRN PRN Reason: Insomnia Last Admin: 02/12/20 23:01 Dose: 3 mg Documented by: Mometasone Furoate/Formoterol Fumar (Dulera 200-5 Mcg) 2 puff IH BIDRT [facility] Last Admin: 02/13/20 08:57 Dose: 2 puff Documented by: Multivitamins/Minerals (Vitamins And Minerals) 1 tab PO DAILY [facility] Last Admin: 02/13/20 08:42 Dose: 1 tab Documented by: Omeprazole (Omeprazole) 20 mg PO DAILY [facility] Last Admin: 02/13/20 08:42 Dose: 20 mg Documented by: Ondansetron HCl (Zofran Odt) 4 mg PO Q4H PRN PRN Reason: nausea, able to take PO Sodium Chloride (Saline Flush) 10 ml FLUSH ASDIRECTED PRN PRN Reason: IV Use Last Admin: 02/13/20 08:42 Dose: 10 ml Documented by: Tramadol HCl (Ultram) 50 mg PO Q6H PRN PRN Reason: Pain Last Admin: 02/12/20 23:01 Dose: 50 mg Documented by: Discontinued Medications Guaifenesin/Codeine Phosphate (Robitussin Ac) 5 ml PO ASDIRECTED PRN PRN Reason: Cough Last Admin: 02/09/20 04:12 Dose: 5 ml Documented by: Sodium Chloride (Normal Saline) 1,000 mls @ 75 mls/hr IV ASDIRECTED [facility] Last Admin: 02/06/20 21:05 Dose: 75 mls/hr Documented by: Ceftriaxone Sodium 1,000 mg/ (Sodium Chloride) 50 mls @ 100 mls/hr IV Q24H [facility] Last Admin: 02/07/20 00:22 Dose: Not Given Documented by: Iopamidol (Isovue-370 (76%)) 100 ml IVPUSH ONETIME ONE Stop: 02/06/20 19:09 Last Admin: 02/07/20 14:24 Dose: Not Given Documented by: Lisinopril (Prinivil) 5 mg PO DAILY [facility] Last Admin: 02/09/20 08:30 Dose: 5 mg Documented by: Mometasone Furoate/Formoterol Fumar (Dulera 200-5 Mcg) 2 puff IH BIDRT [facility] Non-Formulary Medication (Cyclosporine [Restasis]) 1 drop EYEBOTH DAILY [facility] Last Admin: 02/12/20 12:00 Dose: Not Given Documented by: - Exam Quality Assessment: Reports: Supplemental Oxygen (2L via NC) General: Reports: Alert, Oriented, Cooperative, Mild Distress HEENT: Reports: Pupils Equal, Pupils Reactive, Mucous Membr. Moist/Bridger Neck: Reports: Supple, Trachea Midline Lungs: Reports: Rales Cardiovascular: Reports: Regular Rate, Regular Rhythm GI/Abdominal Exam: Normal Bowel Sounds, Soft, Non-Tender, No Distention Extremities: Pedal Edema (Trace,) Skin: Reports: Warm, Dry, Intact Neurological: Reports: No New Focal Deficit Psy/Mental Status: Reports: Alert, Normal Affect, Normal Mood
== END 2020-02-13 17:21 | disposition home or self-care (01) | DRG 177 ==
LOC: DL.ED 17:51 → DL.MS 20:35
PROVIDERS: ADMIT Internal Medicine; ATTEND Internal Medicine
PROC: XW033F5 Introduction of Other New Technology Therapeutic Substance into Peripheral Vein, Percutaneous Approach, New Technology Group 5 (ICD-10-PCS; principal; 2020-02-06)
DX: U07.1 COVID-19 (principal); J12.89 Other viral pneumonia; H54.7 Unspecified visual loss; E78.00 Pure hypercholesterolemia, unspecified; J96.01 Acute respiratory failure with hypoxia; I47.1 Supraventricular tachycardia; G47.30 Sleep apnea, unspecified; Z95.0 Presence of cardiac pacemaker; G89.29 Other chronic pain; M54.9 Dorsalgia, unspecified; M19.90 Unspecified osteoarthritis, unspecified site; M06.9 Rheumatoid arthritis, unspecified; E66.9 Obesity, unspecified; I10 Essential (primary) hypertension; E78.5 Hyperlipidemia, unspecified; Z79.82 Long term (current) use of aspirin; Z79.899 Other long term (current) drug therapy; G47.33 Obstructive sleep apnea (adult) (pediatric); K21.9 Gastro-esophageal reflux disease without esophagitis; Z88.8 Allergy status to other drugs, medicaments and biological substances; D64.9 Anemia, unspecified; Z98.51 Tubal ligation status
CPT/HCPCS: 36415; 71046; 71260; 80048; 80053; 85025; 85379; 94618; 99222; 99231; 99232; 99239; 99284; 99285-25; A9270-GY; J0456; J0696; J1100; J7030; J7050

== ENCOUNTER 2020-09-06 16:24 | Emergency (ER) | payer MEDICARE, MEDICAID ==
--- NOTE | 2020-09-06 16:47 | EDM.PDOC ---
ED HPI GENERAL MEDICAL PROBLEM - General Stated Complaint: CHEST PAIN / TINGLE IN FACE Time Seen by Provider: 09/06/20 16:43 Source of Information: Reports: Patient, RN, RN Notes Reviewed History Limitations: Reports: No Limitations - History of Present Illness INITIAL COMMENTS - FREE TEXT/NARRATIVE: Pita is a 64 y/o female with a history of asthma who presents to the ED via personal vehicle with complaints of left chest tightness. The patient reports her symptoms have been waxing and waning for the past few months since she had COVID in January 2020. She states she had been on Eliquis from February to early August for pulmonary embolism in her left lung; her next appointment with pulmonology is on September 12. She has taken her Dulera daily, and has only required albuterol once every two-three weeks. She denies fever, shaking chills, palpitations, sore throat, nausea, vomiting, diarrhea, constipation, dysuria, or abdominal pain. She does attest to fatigue and dry cough. She has not taken any additional medications for her symptoms. Chest Pain Score (Numeric/FACES): 5 - Related Data Allergies Allergy/AdvReac Type Severity Reaction Status Date / Time ibuprofen AdvReac Other Verified 09/06/20 16:48 Home Meds: Home Meds Calcium Carb, Citrate/Vit D3 [Calcium + D3 ER Tablet] 1 tab PO DAILY 06/06/13 [History] Multivitamin with Minerals [Joaquin Multivitamin with Mineral] 1 tab PO DAILY 06/06/13 [History] Aspirin [Adult Low Dose Aspirin EC] 81 mg PO DAILY 09/06/17 [History] cycloSPORINE [Restasis] 1 drop EYEBOTH DAILY 09/06/17 [History] Acetaminophen 1,000 mg PO TID 11/04/17 [History] Folic Acid 1 mg PO DAILY 12/05/18 [History] Omeprazole 20 mg PO DAILY 12/05/18 [History] Codeine/guaiFENesin [Robitussin AC] 5 ml PO ASDIRECTED PRN 02/06/20 [History] lisinopriL [Lisinopril] 5 mg PO DAILY 02/06/20 [History] Cetirizine [ZyrTEC] 10 mg PO DAILY 02/07/20 [History] Albuterol [Proventil HFA] 6.7 gm INH QIDRT #1 inhaler 02/13/20 [Rx] Mometasone/Formoterol [Dulera 200-5 MCG] 2 puff IH BIDRT #1 inhaler 02/13/20 [Rx] Past Medical History HEENT History: Reports: Impaired Vision Cardiovascular History: Reports: Arrhythmia, High Cholesterol, Hypertension, Pacemaker, Other (See Below) Other Cardiovascular History: rapid heart and palpations Respiratory History: Reports: Sleep Apnea Gastrointestinal History: Reports: GERD, Other (See Below) Other Gastrointestinal History: S/P GASTRIC EROSIONS Genitourinary History: Reports: None 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 HX OF COSTOCHONDRITIS. FRACTURE OF R FEMUR Neurological History: Reports: None, Other (See Below) Other Neuro History: HX OF ASCENCIO'S PALSY Psychiatric History: Reports: None Endocrine/Metabolic History: Reports: Obesity/BMI 30+ Hematologic History: Reports: Anemia Immunologic History: Reports: None Oncologic (Cancer) History: Reports: None Dermatologic History: Reports: None - Infectious Disease History Infectious Disease History: Reports: Chicken Pox, Measles, Mumps, Other (See Below) Other Infectious Disease History: covid - Past Surgical History Head Surgeries/Procedures: Reports: None HEENT Surgical History: Reports: None Cardiovascular Surgical History: Reports: Percutaneous Transluminal Angioplasty, Other (See Below) Other Cardiovascular Surgeries/Procedures: ablation GI Surgical History: Reports: Colonoscopy, EGD Female Surgical History: Reports: Tubal Ligation Neurological Surgical History: Reports: None Social & Family History - Family History Family Medical History: No Pertinent Family History - Caffeine Use Caffeine Use: Reports: None Other Caffeine Use: 12 oz - Living Situation & Occupation Living situation: Reports: , with Family Occupation: Retired ED ROS GENERAL - Review of Systems Review Of Systems: Comprehensive ROS is negative, except as noted in HPI. ED EXAM, GENERAL - Physical Exam Exam: See Below Exam Limited By: No Limitations General Appearance: Alert, No Apparent Distress Eye Exam: Bilateral Eye: EOMI, Normal Inspection, PERRL (3mm) Ears: Normal External Exam, Normal Canal, Hearing Grossly Normal, Normal TMs Ear Exam: Bilateral Ear: Auricle Normal, Canal Normal, TM normal Nose: Normal Inspection, Normal Mucosa, No Blood Throat/Mouth: Normal Inspection, Normal Lips, Normal Teeth, Normal Gums, Normal Oropharynx, Normal Voice, No Airway Compromise Head: Atraumatic, Normocephalic Neck: Normal Inspection, Supple, Non-Tender, Full Range of Motion. No: Lymphadenopathy (L), Lymphadenopathy (R) Respiratory/Chest: No Respiratory Distress, Lungs Clear, Normal Breath Sounds, No Accessory Muscle Use. No: Crackles, Rales, Rhonchi, Wheezing, Stridor, Pleural Rub, Retractions Cardiovascular: Normal Peripheral Pulses, Regular Rate, Rhythm, No Edema, No Gallop, No JVD, No Murmur, No Rub, Other (Pacer ) Peripheral Pulses: 2+: Radial (L), Radial (R) GI/Abdominal: Normal Bowel Sounds, Soft, Non-Tender, No Distention, No Abnormal Bruit, No Mass, Pelvis Stable Back Exam: Normal Inspection, Full Range of Motion Extremities: Normal Inspection, Normal Range of Motion, Non-Tender, No Pedal Edema, Normal Capillary Refill Neurological: Alert, Oriented, CN II-XII Intact, Normal Cognition, Normal Gait, No Motor/Sensory Deficits Psychiatric: Normal Mood, Flat Affect Skin Exam: Warm, Dry, Intact, Normal Color, No Rash. No: Cyanosis, Erythema, Jaundice, Mottled, Pallor, Petechiae #1 Interpretation EKG Date: 09/06/20 Time: 16:40 Rhythm: Other (Ventricular paced rhythm) Rate (Beats/Min): 76 [place]: LAD-Left [place] Deviation P-Wave: Present MN/PQ Interval: 0.21 Comparison: Change From Previous EKG (A-V paced on previous EKG) EKG Interpretation Comments: V-Paced rhythm with 100% capture; No evidence of acute myocardial ischemia Course - Vital Signs Last Recorded V/S: Last Vital Signs Temp 97.6 F 09/06/20 16:44 Pulse 76 09/06/20 16:44 Resp 16 09/06/20 16:44 BP 129/68 09/06/20 16:44 Pulse Ox 96 09/06/20 16:44 - Orders/Labs/Meds Labs: Laboratory Tests 09/06/20 09/06/20 09/06/20 Range/Units 17:02 17:02 17:02 WBC 6.6 (5.0-10.0) 10^3/uL RBC 4.18 L (4.2-5.4) 10^6/uL Hgb 12.5 (12.0-16.0) g/dL Hct 38.6 (37.0-47.0) % MCV 92.3 (80-100) fL MCH 29.9 (27.0-34.0) pg MCHC 32.4 L (33.0-35.0) g/dL Plt Count 250 (150-450) 10^3/uL Neut % (Auto) 51.1 (42.2-75.2) % Lymph % (Auto) 38.0 (20.5-50.1) % [place] % (Auto) 7.0 (2-8) % Eos % (Auto) 3.6 H (1.0-3.0) % Baso % (Auto) 0.3 (0.0-1.0) % PT 10.4 (9.0-12.0) SEC INR 1.0 (0.9-1.2) APTT 24.1 (22.0-34.0) SEC Sodium 144 (136-145) mmol/L Potassium 3.9 (3.5-5.1) mmol/L Chloride 107 (98-107) mmol/L Carbon Dioxide 29 (21-32) mmol/L Anion Gap 11.9 (7-13) mEq/L BUN 12 (7-18) mg/dL Creatinine 0.89 (0.55-1.02) mg/dL Est Cr Clr Drug Dosing 68.15 mL/min Estimated GFR (MDRD) > 60 BUN/Creatinine Ratio 13.5 (No establ ref range) Glucose 126 H (70-99) mg/dL Lactic Acid (0.4-2.0) mmol/L Calcium 8.4 L (8.5-10.1) mg/dL Magnesium 2.1 (1.8-2.4) mg/dL Total Bilirubin 0.4 (0.2-1.0) mg/dL AST 21 (15-37) U/L ALT 32 (14-59) U/L Alkaline Phosphatase 83 (46-116) U/L Troponin I High Sens 10 (<=51) pg/mL C-Reactive Protein < 0.2 (0.0-0.9) mg/dL B-Natriuretic Peptide 50 (0-100) pg/ml Total Protein 6.9 (6.4-8.2) g/dL Albumin 3.2 L (3.4-5.0) g/dL Globulin 3.7 Albumin/Globulin Ratio 0.86 Amylase 57 (25-115) U/L Lipase 134 (73-393) U/L Urine Color (YELLOW) Urine Appearance (CLEAR) Urine pH (5.0-9.0) Ur Specific [place] (1.005-1.030) Urine Protein (NEGATIVE) Urine Glucose (UA) (NEGATIVE) Urine Ketones (NEGATIVE) Urine Occult Blood (NEGATIVE) Urine Nitrite (NEGATIVE) Urine Bilirubin (NEGATIVE) Urine Urobilinogen (0.2-1.0) mg/dL Ur Leukocyte Esterase (NEGATIVE) Urine RBC /HPF Urine WBC (0-5/HPF) /HPF Ur Epithelial Cells (NOT SEEN) /HPF Urine Bacteria (0-FEW/HPF) /HPF Urine Mucus (NOT SEEN) /LPF Urine Opiates Screen (NEGATIVE) Ur Oxycodone Screen (NEGATIVE) Urine Methadone Screen (NEGATIVE) Ur Barbiturates Screen (NEGATIVE) U Tricyclic Antidepress (NEGATIVE) Ur Phencyclidine Scrn (NEGATIVE) Ur Amphetamine Screen (NEGATIVE) U Methamphetamines Scrn (NEGATIVE) Urine MDMA Screen (NEGATIVE) U Benzodiazepines Scrn (NEGATIVE) Urine Cocaine Screen (NEGATIVE) U Marijuana (THC) Screen (NEGATIVE) Ethyl Alcohol < 3 (0) mg/dL 09/06/20 09/06/20 09/06/20 Range/Units 17:02 17:29 17:29 WBC (5.0-10.0) 10^3/uL RBC (4.2-5.4) 10^6/uL Hgb (12.0-16.0) g/dL Hct (37.0-47.0) % MCV (80-100) fL MCH (27.0-34.0) pg MCHC (33.0-35.0) g/dL Plt Count (150-450) 10^3/uL Neut % (Auto) (42.2-75.2) % Lymph % (Auto) (20.5-50.1) % [place] % (Auto) (2-8) % Eos % (Auto) (1.0-3.0) % Baso % (Auto) (0.0-1.0) % PT (9.0-12.0) SEC INR (0.9-1.2) APTT (22.0-34.0) SEC Sodium (136-145) mmol/L Potassium (3.5-5.1) mmol/L Chloride (98-107) mmol/L Carbon Dioxide (21-32) mmol/L Anion Gap (7-13) mEq/L BUN (7-18) mg/dL Creatinine (0.55-1.02) mg/dL Est Cr Clr Drug Dosing mL/min Estimated GFR (MDRD) BUN/Creatinine Ratio (No establ ref range) Glucose (70-99) mg/dL Lactic Acid 0.7 (0.4-2.0) mmol/L Calcium (8.5-10.1) mg/dL Magnesium (1.8-2.4) mg/dL Total Bilirubin (0.2-1.0) mg/dL AST (15-37) U/L ALT (14-59) U/L Alkaline Phosphatase (46-116) U/L Troponin I High Sens (<=51) pg/mL C-Reactive Protein (0.0-0.9) mg/dL B-Natriuretic Peptide (0-100) pg/ml Total Protein (6.4-8.2) g/dL Albumin (3.4-5.0) g/dL Globulin Albumin/Globulin Ratio Amylase (25-115) U/L Lipase (73-393) U/L Urine Color Yellow (YELLOW) Urine Appearance Clear (CLEAR) Urine pH 7.0 (5.0-9.0) Ur Specific [place] 1.025 (1.005-1.030) Urine Protein Negative (NEGATIVE) Urine Glucose (UA) Negative (NEGATIVE) Urine Ketones Negative (NEGATIVE) Urine Occult Blood Trace-intact H (NEGATIVE) Urine Nitrite Negative (NEGATIVE) Urine Bilirubin Negative (NEGATIVE) Urine Urobilinogen 1.0 (0.2-1.0) mg/dL Ur Leukocyte Esterase Small H (NEGATIVE) Urine RBC 0-5 /HPF Urine WBC 0-5 (0-5/HPF) /HPF Ur Epithelial Cells Few (NOT SEEN) /HPF Urine Bacteria Few (0-FEW/HPF) /HPF Urine Mucus Few H (NOT SEEN) /LPF Urine Opiates Screen Negative (NEGATIVE) Ur Oxycodone Screen Negative (NEGATIVE) Urine Methadone Screen Negative (NEGATIVE) Ur Barbiturates Screen Negative (NEGATIVE) U Tricyclic Antidepress Negative (NEGATIVE) Ur Phencyclidine Scrn Negative (NEGATIVE) Ur Amphetamine Screen Negative (NEGATIVE) U Methamphetamines Scrn Negative (NEGATIVE) Urine MDMA Screen Negative (NEGATIVE) U Benzodiazepines Scrn Negative (NEGATIVE) Urine Cocaine Screen Negative (NEGATIVE) U Marijuana (THC) Screen Negative (NEGATIVE) Ethyl Alcohol (0) mg/dL - Radiology Interpretation Free Text/Narrative:: [facility] Final Radiology Report Call: [phone] assistance Online chat: [email or web address] Name: PITA REGAN Age: 64Years F Date: 09/06/2020 SSN: -- : [id number] Study: CR CHEST 1V FRONTAL Requesting Physician: Wilma Rollins Images: 1 Addl Studies: Provided Clinical History: Chest pain Contrast: Contrast Medium: Contrast Amount: Contrast Method: Page 1 of 2 PROCEDURE INFORMATION: Exam: XR Chest Exam date and time: 09/06/2020 5:40 PM Age: 64 years old Clinical indication: Other: Chest paijn; Additional info: Chest pain TECHNIQUE: Imaging protocol: XR of the chest. Views: 1 view. COMPARISON: CT Chest wo Cont, Chest wo Cont 06/27/2020 1:38 PM FINDINGS: Tubes, catheters and devices: A pacemaker device is present, and its leads are in appropriate position. Airway: The airways are patent. Lungs: Mild diffuse interstitial prominence, favoring chronic interstitial lung changes. No acute interstitial or airspace disease. Pleural spaces: There are no pleural effusions present. There is no evidence of pneumothorax. Heart/Mediastinum: The heart is moderately enlarged. Bones/joints: No acute skeletal abnormality or aggressive osseous lesion. IMPRESSION: Negative for acute thoracic pathology. Thank you for allowing us to participate in the care of your patient. Dictated and Authenticated by: Zachery Pal MD 09/06/2020 6:27 PM Central Time ([place] & [place]) - Re-Assessments/Exams Free Text/Narrative Re-Assessment/Exam: 09/06/20 X-ray chest obtained while labs pending. Patient denies SOB or CP at this time. Findings of examination, lab work, and imaging reviewed with patient. Discussed supportive cares for asthma, as well as use of albuterol inhaler when needed. Patient advised to continue with pulmonology appointment. Red flag signs and symptoms which would warrant reevaluation reviewed. Patient verbalized understanding and agreement with the plan of care. Departure - Departure Time of Disposition: 18:32 Disposition: Home, Self-Care 01 Condition: Good Clinical Impression: History of asthma, Atypical chest pain Instructions: Nonspecific Chest Pain, Adult, [id number] Forms: ED Department Discharge Additional Instructions: 1.) Continue with previously scheduled pulmonology appointment. 2.) Use your albuterol, as needed. Should you feel short of breath you can take a two puffs, every four hours. 3.) Return to the emergency room with any worsening symptoms, or symptoms that do not improve with medication.
[2020-09-06 16:48] VITALS: BP 129/68; PULSE 76
[2020-09-06 17:29] LABS: PTT,PARTIAL THROMBOPLSTIN TIME 24.1 SEC (22.0-34.0)
[2020-09-06 17:35] LABS: ANION GAP 11.9 mEq/L (7-13); CHLORIDE,CL 107 mmol/L (98-107); SODIUM,NA 144 mmol/L (136-145)
--- NOTE | 2020-09-06 18:28 | CR ---
PROCEDURE INFORMATION: Exam: XR Chest Exam date and time: 09/06/2020 5:40 PM Age: 64 years old Clinical indication: Other: Chest paijn; Additional info: Chest pain TECHNIQUE: Imaging protocol: XR of the chest. Views: 1 view. COMPARISON: CT Chest wo Cont, Chest wo Cont 06/27/2020 1:38 PM FINDINGS: Tubes, catheters and devices: A pacemaker device is present, and its leads are in appropriate position. Airway: The airways are patent. Lungs: Mild diffuse interstitial prominence, favoring chronic interstitial lung changes. No acute interstitial or airspace disease. Pleural spaces: There are no pleural effusions present. There is no evidence of pneumothorax. Heart/Mediastinum: The heart is moderately enlarged. Bones/joints: No acute skeletal abnormality or aggressive osseous lesion. IMPRESSION: Negative for acute thoracic pathology.
== END 2020-09-06 18:43 | disposition home or self-care (01) ==
LOC: DL.ED 16:24
DX: R07.89 Other chest pain (principal); E78.00 Pure hypercholesterolemia, unspecified; I10 Essential (primary) hypertension; K21.9 Gastro-esophageal reflux disease without esophagitis; E66.9 Obesity, unspecified; Z68.32 Body mass index [BMI] 32.0-32.9, adult; Z87.09 Personal history of other diseases of the respiratory system; Z79.899 Other long term (current) drug therapy; Z88.8 Allergy status to other drugs, medicaments and biological substances; Z79.82 Long term (current) use of aspirin
CPT/HCPCS: 36415; 71045; 80053; 80305-QW; 80307; 81001; 82150; 83605; 83690; 83735; 83880; 84484; 85025; 85610; 85730; 86140; 87086; 87088; 93005; 99285-25

== ENCOUNTER 2021-08-07 16:48 | Emergency (ER) | payer MEDICARE, MEDICAID ==
[2021-08-07 17:02] VITALS: BP 149/82; PULSE 77
[2021-08-07] MEDS ORDERED: Ondansetron 4 MG Tab.DIS PO ONE (17:15)
[2021-08-07] MEDS ORDERED: Sodium Chloride 0.9% 10 ML Syringe FLUSH PRN (17:45)
[2021-08-07 18:20] LABS: ANION GAP 12.1 mEq/L (7-13); CHLORIDE,CL 106 mmol/L (98-107); SODIUM,NA 142 mmol/L (136-145)
[2021-08-07] MEDS ORDERED: Acetaminophen 500 MG Tab PO ONE (18:32)
== END 2021-08-07 18:52 | disposition home or self-care (01) ==
LOC: DL.ED 16:48
DX: R51.9 Headache, unspecified (principal); M54.2 Cervicalgia; M79.641 Pain in right hand; I10 Essential (primary) hypertension; K21.9 Gastro-esophageal reflux disease without esophagitis; E66.9 Obesity, unspecified; Z68.37 Body mass index [BMI] 37.0-37.9, adult; Z86.16 Personal history of COVID-19; Z20.822 Contact with and (suspected) exposure to COVID-19; Z79.899 Other long term (current) drug therapy; Z79.82 Long term (current) use of aspirin; Z88.6 Allergy status to analgesic agent
CPT/HCPCS: 36415; 70450; 71250; 72125; 72128; 73120; 80053; 85025; 85610; 99284; A9270; U0002

== ENCOUNTER 2021-12-14 18:53 | Emergency (ER) | payer MEDICARE, MEDICAID ==
[2021-12-14] MEDS ORDERED: Iopamidol 755 Mg/ML 100 ML Bottle IVPUSH ONE (20:08)
[2022-01-08 10:19] LABS: CHLORIDE,CL 104 mmol/L (98-107); ESTIMATED GFR 67 mL/min (>=60); SODIUM,NA 139 mmol/L (136-145)
== END 2021-12-14 23:20 | disposition home or self-care (01) ==
LOC: DL.ED 18:53
DX: R07.9 Chest pain, unspecified (principal); R53.81 Other malaise; Z20.822 Contact with and (suspected) exposure to COVID-19
CPT/HCPCS: 36415; 70450; 71260; 80053; 81001; 82150; 83605; 83690; 83880; 84443; 84484; 85025; 85379; 85610; 87040; 87086; 99284; Q9967; U0002

== ENCOUNTER 2022-12-08 08:01 | Day surgery (SDC) | payer MEDICAID, MEDICARE ==
[~2022-12-08 08:01] MED LIST changes: +Acetaminophen 325 MG Tab PO PRN; +Acetaminophen/Codeine 300-30 MG Tab PO PRN; +Cataract Ophth Solution EYERT ONE; -Midazolam 1 MG/ML 2 ML SDV ONE; +Moxifloxacin 0.5% Ophth Soln 3 ML Bottle EYERT ONE; +Ondansetron 4 MG/2 ML SDV IVPUSH PRN; +Phenylephrine 10% Ophth Soln 5 ML Bot EYERT PRN; +Povidone-Iodine 5% Sterile Ophth Soln 30 ML Bottle EYERT ONE; +Proparacaine 0.5% Ophth Soln 15 ML Bottle EYERT ONE; +Timolol Maleate 0.5% Ophth Soln 5 ML Bottle EYERT ONE; +Tropicamide 1% Ophth Soln 15 ML Bottle EYERT ONE; -fentaNYL 100 MCG/2 ML SDV ONE
[2022-12-08] MEDS ORDERED: Proparacaine 0.5% Ophth Soln 15 ML Bottle EYERT ONE (09:03)
[2022-12-08] MEDS ORDERED: Povidone-Iodine 5% Sterile Ophth Soln 30 ML Bottle EYERT ONE (09:04)
[2022-12-08] MEDS ORDERED: Lidocaine 1% 30 ML SDV ONE (09:15)
[2022-12-08] MEDS ORDERED: Balanced Salt Solution Ophth Irrig 15 ML Bottle EYERT ONE (09:16)
[2022-12-08] MEDS ORDERED: Vancomycin 500 MG SDV EYERT ONE (09:16)
[2022-12-08] MEDS ORDERED: Apraclonidine 0.5% Ophth Soln 5 ML Bot EYERT ONE (09:16)
[2022-12-08] MEDS ORDERED: Dexamethasone/Neomycin/Polymyxin B Ophth Oint 3.5 GM Tube EYERT ONE (09:17)
[2022-12-08 09:56] VITALS: BP 153/79; PULSE 69
== END 2022-12-08 10:04 | disposition home or self-care (01) ==
LOC: DL.SDS 08:01
PROVIDERS: ATTEND Ophthalmology
DX: H25.811 Combined forms of age-related cataract, right eye (principal); I10 Essential (primary) hypertension; K21.9 Gastro-esophageal reflux disease without esophagitis; G47.30 Sleep apnea, unspecified; R73.03 Prediabetes; E66.9 Obesity, unspecified; Z88.8 Allergy status to other drugs, medicaments and biological substances; Z79.82 Long term (current) use of aspirin; Z68.34 Body mass index [BMI] 34.0-34.9, adult; Z79.899 Other long term (current) drug therapy
CPT/HCPCS: 00142; A9270-GY; J3370; J3490

== ENCOUNTER 2023-02-11 23:17 | Emergency (ER) | payer MEDICAID, MEDICARE ==
[2023-02-11] MEDS ORDERED: Sodium Chloride 0.9% 10 ML Syringe FLUSH PRN (23:26)
[2023-02-11 23:35] LABS: BASOPHILS PERCENT AUTO 0.5 % (0.0-1.0); EOSINOPHILS PERCENT AUTO 2.7 % (1.0-3.0); HEMATOCRIT 41.2 % (37.0-47.0); HEMOGLOBIN 13.5 g/dL (12.0-16.0); LYMPHOCYTES PERCENT AUTO 40.8 % (20.5-50.1); MEAN CORPUSCULAR HEMOGLOBIN 30.3 pg (27.0-34.0); MEAN CORPUSCULAR HGB CONC 32.8 g/dL (33.0-35.0); MEAN CORPUSCULAR VOLUME 92.6 fL (80-100); PLATELET COUNT,PLT 306 10^3/uL (150-450); RED BLOOD CELL COUNT 4.45 10^6/uL (4.2-5.4); WHITE BLOOD CELL COUNT,WBC 7.4 10^3/uL (5.0-10.0)
[2023-02-11 23:50] VITALS: PULSE 70
[2023-02-11 23:57] LABS: ANION GAP 12.8 mEq/L (7-13); CREATININE 0.78 mg/dL (0.55-1.02); EST CRCL DRUG DOSING (CG) 57.1 mL/min; MAGNESIUM 2.2 mg/dL (1.8-2.4); POTASSIUM,K 3.8 mmol/L (3.5-5.1)
[2023-02-12 01:38] VITALS: BP 129/76
== END 2023-02-12 02:43 | disposition home or self-care (01) ==
LOC: DL.ED 23:17
DX: R00.2 Palpitations (principal); I10 Essential (primary) hypertension; E78.00 Pure hypercholesterolemia, unspecified; E66.9 Obesity, unspecified; Z79.82 Long term (current) use of aspirin; Z86.16 Personal history of COVID-19; Z79.899 Other long term (current) drug therapy; Z95.0 Presence of cardiac pacemaker; Z88.6 Allergy status to analgesic agent; Z68.38 Body mass index [BMI] 38.0-38.9, adult
CPT/HCPCS: 36415; 71045; 80048; 83735; 83880; 84484; 85025; 93005; 93010; 99284; 99285; J3490

== ENCOUNTER 2023-04-06 09:07 | Day surgery (SDC) | payer MEDICARE ==
[~2023-04-06 09:07] MED LIST changes: +Cataract Ophth Solution EYELF ONE; -Cataract Ophth Solution EYERT ONE; +Moxifloxacin 0.5% Ophth Soln 3 ML Bottle EYELF ONE; -Moxifloxacin 0.5% Ophth Soln 3 ML Bottle EYERT ONE; +Phenylephrine 10% Ophth Soln 5 ML Bot EYELF PRN; -Phenylephrine 10% Ophth Soln 5 ML Bot EYERT PRN; +Povidone-Iodine 5% Sterile Ophth Soln 30 ML Bottle EYELF ONE; -Povidone-Iodine 5% Sterile Ophth Soln 30 ML Bottle EYERT ONE; +Proparacaine 0.5% Ophth Soln 15 ML Bottle EYELF ONE; -Proparacaine 0.5% Ophth Soln 15 ML Bottle EYERT ONE; +Timolol Maleate 0.5% Ophth Soln 5 ML Bottle EYELF ONE; -Timolol Maleate 0.5% Ophth Soln 5 ML Bottle EYERT ONE; +Tropicamide 1% Ophth Soln 15 ML Bottle EYELF ONE; -Tropicamide 1% Ophth Soln 15 ML Bottle EYERT ONE
[2023-04-06] MEDS ORDERED: Tropicamide 1% Ophth Soln 15 ML Bottle EYELF ONE (09:30)
[2023-04-06] MEDS ORDERED: Moxifloxacin 0.5% Ophth Soln 3 ML Bottle EYELF ONE (09:30)
[2023-04-06] MEDS ORDERED: Povidone-Iodine 5% Sterile Ophth Soln 30 ML Bottle EYELF ONE ×2 (09:30→10:46)
[2023-04-06] MEDS ORDERED: Cataract Ophth Solution EYELF ONE (09:30)
[2023-04-06] MEDS ORDERED: Sodium Chloride 0.9% 10 ML Syringe FLUSH PRN (09:30)
[2023-04-06] MEDS ORDERED: Timolol Maleate 0.5% Ophth Soln 5 ML Bottle EYELF ONE (09:30)
[2023-04-06] MEDS ORDERED: Ondansetron 4 MG/2 ML SDV IVPUSH PRN (09:30)
[2023-04-06] MEDS ORDERED: Phenylephrine 10% Ophth Soln 5 ML Bot EYELF ONE (09:30)
[2023-04-06] MEDS ORDERED: Acetaminophen/Codeine 300-30 MG Tab PO PRN (09:30)
[2023-04-06] MEDS ORDERED: Acetaminophen 325 MG Tab PO PRN (09:30)
[2023-04-06] MEDS ORDERED: Proparacaine 0.5% Ophth Soln 15 ML Bottle EYELF ONE ×2 (09:30→10:46)
[2023-04-06] MEDS ORDERED: Apraclonidine 0.5% Ophth Soln 5 ML Bot EYELF ONE (10:46)
[2023-04-06] MEDS ORDERED: Diclofenac Sodium 0.1% Ophth Soln 5 ML Bottle EYELF ONE (10:46)
[2023-04-06] MEDS ORDERED: Dexamethasone/Neomycin/Polymyxin B Ophth Oint 3.5 GM Tube EYELF ONE (10:47)
[2023-04-06] MEDS ORDERED: Lidocaine 1% 30 ML SDV INJECT ONE (10:47)
[2023-04-06] MEDS ORDERED: Vancomycin 500 MG SDV EYELF ONE (10:48)
[2023-04-06 11:47] VITALS: BP 132/70; PULSE 80
== END 2023-04-06 11:47 | disposition home or self-care (01) ==
LOC: DL.SDS 09:07
PROVIDERS: ATTEND Ophthalmology
DX: H25.812 Combined forms of age-related cataract, left eye (principal); I10 Essential (primary) hypertension; K21.9 Gastro-esophageal reflux disease without esophagitis; G47.33 Obstructive sleep apnea (adult) (pediatric); E66.9 Obesity, unspecified; Z98.890 Other specified postprocedural states; Z68.36 Body mass index [BMI] 36.0-36.9, adult; Z88.8 Allergy status to other drugs, medicaments and biological substances; Z88.6 Allergy status to analgesic agent
CPT/HCPCS: A9270-GY; J3370; J3490; V2788

== ENCOUNTER 2024-05-05 20:42 | Emergency (ER) | payer MEDICARE, OTHER ==
[2024-05-05 21:02] VITALS: BP 137/84; PULSE 70
== END 2024-05-05 21:11 | disposition home or self-care (01) ==
LOC: DL.ED 20:42
DX: S20.212A Contusion of left front wall of thorax, initial encounter (principal); I10 Essential (primary) hypertension; E66.9 Obesity, unspecified; Z86.16 Personal history of COVID-19; Z79.899 Other long term (current) drug therapy; Z79.1 Long term (current) use of non-steroidal anti-inflammatories (NSAID); Z79.82 Long term (current) use of aspirin; Z88.6 Allergy status to analgesic agent; Z68.34 Body mass index [BMI] 34.0-34.9, adult; W18.30XA Fall on same level, unspecified, initial encounter
CPT/HCPCS: 71045; 99283